=== PATIENT | female | born 1945 | race Caucasian/White ===

== ENCOUNTER → 2018-01-19 15:59 | Outpatient (POV) | payer BC, MEDICARE, SELFPAY | DX: Z00.00 Encounter for general adult medical examination without abnormal findings (principal) ==

== ENCOUNTER → 2018-01-26 09:38 | Outpatient (CLI) | payer BC, MEDICARE, SELFPAY ==
--- NOTE | 2018-01-26 09:49 | MM_ITS ---
MM Dig screening mamm BI w/CAD ORDERING PHYSICIAN : Michelet Reddy MD PATIENT AGE: 72 years GENDER: Female COMPARISON: May 2015, additional mammogram. July 2008 and May 2007 film screen mammogram INDICATION: ITS.REASON: SCREENING routine screening. No hormones. No new complaints... Family History.. Paternal cousins with breast cancer TECHNIQUE: Standard CC and MLO images were obtained. R2 CAD reviewed. FINDINGS: Residual fibroglandular elements most evident towards upper-outer quadrant. Overall Lower density breast bilaterally with no suspicious mass. No dominant mass. No suspicious calcifications.. . No significant new findings RIGHT BREAST:Stable. Follow-up in one year. LEFT BREAST: No new findings. At left breast multiple Mole markers again noted IMPRESSION: ------ Stable bilateral mammogram with no areas of significant concern. . BI-RADS Category: 1 Negative RECOMMENDED FOLLOW-UP: 1YR 1 YEAR FOLLOW-UP (A letter has been sent to the patient regarding results of the study.)
== END ==
PROVIDERS: PCP Family Medicine; Visit Provider Family Medicine
DX: Z12.31 Encounter for screening mammogram for malignant neoplasm of breast (principal)
CPT/HCPCS: 77067

== ENCOUNTER 2020-01-01 12:38 | Inpatient (IN) | payer MEDICARE, OTHER, SELFPAY ==
[2020-01-01] VITALS (12 sets, daily range): BP systolic 91–120; BP diastolic 48–80; PULSE 98–122; RESP 18–26; TEMP 37.2–39.6; O2SAT 92–93; BMI 27.2
--- NOTE | 2020-01-01 13:00 | PC.NURSE ---
PATIENT PRESENTS TO THE UNIT FROM DOCTOR CARMEN OFFICE. REPORTS RECENT SUDDEN CONFUSION AND PAIN WHILE URINATING. PATIENT DOES APPEAR TO BE CONFUSED AT THIS TIME AND WEAK. MASK IN PLACE PER PROTOCOL. POC EXPLAINED AND PATIENT V/U.
--- NOTE | 2020-01-01 13:40 | PC.NURSE ---
2 ATTEMPTS WERE MADE TO DRAW LABS (CBC, CMP, BLOOD CULTURES) AND START AN IV. CALLED LAB AND REQUESTED THEM TO DRAW LABS.
--- NOTE | 2020-01-01 14:00 | PC.NURSE ---
LAB SUCCESSFULLY CHELLE CBC, CMP, BLOOD CULTURES X2. lAB STATED THEY HAD TO STICK PATIENT 3 TIMES JUST TO GET LABS.
--- NOTE | 2020-01-01 14:00 | PC.NURSE ---
Lab personnel at bedside.
--- NOTE | 2020-01-01 15:07 | HMH.PHAVTE ---
[facility] Pharmacy VTE Monitoring - Patient Demographics Admission date: 01/01/20 Report Date: 01/01/20 Time: 15:07 Allergies/Adverse Reactions: Patient Allergies No Known Allergies Allergy (Unverified 02/09/17 15:02) Height: 1.57 m Weight: 67.585 kg - VTE Risk Was VTE Risk Assessment Performed: Yes VTE Score: 3 VTE Risk Level: Low Risk - Prophylaxis VTE Prophylaxis Ordered?: Yes Types of VTE Prophylaxis: TEDS Knee High Location of Applied Device: Bilateral Lower Extremeties
[2020-01-01 15:17] LABS: Basophils # 0.1 K/mm3 (0-0.2); Basophils % 0.3 % (0.1-2.0); Hematocrit 50.4 % (37.0-47.0); Hemoglobin 16.7 g/dL (12.2-16.2); Lymphocytes % 8.5 % (10-50); Mean Corpuscular HGB Conc 33.2 g/dL (31.8-35.4); Mean Corpuscular Hemoglobin 28.2 pg (27.0-31.2); Mean Corpuscular Volume 85.1 fl (81-99); Mean Platelet Volume 9.6 fl (7.4-10.4); Monocytes # 1.5 K/mm3 (0.1-1.0); Monocytes % 6.3 % (1.7-9.3); Neutrophils # 19.9 K/mm3 (1.8-7.8); Neutrophils % 84.9 % (37.0-80.0); Platelet Count 155 K/mm3 (142-424); Red Blood Count 5.92 M/mm3 (4.20-5.40); Red Cell Distribution Width 13.2 % (11.5-17.5); White Blood Count 23.4 K/mm3 (4.8-10.8)
[2020-01-01 15:18] LABS: Chloride 96 mmol/L (98-107); MANUAL DIFFERENTIAL MANUAL DIFFERENTIAL (MANUAL DIFF); Potassium 3.8 mmoL/L (3.5-5.1); Sodium 130 mmol/L (136-145)
[2020-01-01 15:21] LABS: Anion Gap 14.8 mEq/L (5-15); Blood Urea Nitrogen 30 mg/dl (7-17); Calcium 9.1 mg/dl (8.4-10.2); Carbon Dioxide 23 mmol/L (22.0-30.0); Creatinine Clearance Estimated 47 mL/min (50-200); Estimated Glomerular Filt Rate 48 ml/min (>60); GFR (African American) 59 ML/MIN (>60); Glucose 177 mg/dl (74-100)
[2020-01-01 15:25] LABS: Lactic Acid 2.5 mmol/L (0.7-2.1)
[2020-01-01 15:59] LABS: Coronavirus 19 IgG Antibody Negative (Negative); Coronavirus 19 IgM Antibody Negative (Negative)
--- NOTE | 2020-01-01 16:55 | HMH.HP ---
*Admission Date: 01/01/20 *Chief complaint: Fever *History of present illness: 74-year-old female with diabetes and hypertension presented to the office today with 2 days of dysuria and urinary frequency followed by fevers that began early this morning. Fevers were as high as 102. Patient was evaluated in the office and found to be confused with altered mentation. Exam was significant for a fever to 102.7 as well as right costovertebral angle tenderness. No other source of infection was identified and a white count in office was 20,000. Patient was unable to provide urine sample but due to exam consistent with right pyelonephritis patient was admitted to the hospital for further treatment. Currently she has IV fluids running. Urine is dark cloudy yellow and patient did require Cheema catheterization due to inability to urinate. White blood cell count was 23,000 on repeat labs here with mild elevation of lactic acid. Patient denies symptoms of respiratory infection. She denies vomiting, nausea, diarrhea. [facility] History I have reviewed the patient's past medical history: Yes Medical History: Reports:: Diabetes Mellitus Type 2, Hypertension Denies:: Cancer, Diabetes Mellitus Type 1, Internal Pacemaker, MRSA *Have you ever received a pneumonia vaccine?: No *Have you received a flu vaccine this season?: No Other Surgeries: No: Pacemaker Amputation: No Fractures: No - *Social History Last grade of school completed: 11th or 12th Smoking Status: Never smoker Alcohol Intake: never *Occupational Status:: retired Housing: house Household Members: spouse *Travel in the last 8 weeks: None Family Hx:: Non-contributory Review of Systems - Constitutional Reports body ache(s), Reports lack of energy, Denies chills - *Cardiovascular Denies chest pain, Denies chest pain at rest, Denies chest pain with activity - *Respiratory Denies change in phlegm color, Denies chest congestion, Denies cough, Denies shortness of breath - *Gastrointestinal Denies abdominal pain, Denies belching, Denies bloating, Denies heartburn, Denies vomiting - *Genitourinary Reports difficulty urinating, Reports painful urination, Reports difficulty starting urination, Denies dribbling after urination - *Musculoskeletal Denies abnormal walking, Denies joint pain - *Neurologic Reports confusion, Denies abnormal walking, Denies abnormal hearing, Denies abnormal movements, Denies abnormal speech - Psychiatric Denies abnormal sleep pattern Meds Home Medications Medication Instructions Recorded Confirmed Type Atorvastatin Calcium [Lipitor 10mg 10 mg PO HS 01/01/20 01/01/20 History Tab] Metformin HCl [Metformin 1000mg 1,000 mg PO DAILY 01/01/20 01/01/20 History Tablets] lisinopriL [Lisinopril 20mg Tab] 20 mg PO DAILY 01/01/20 01/01/20 History Allergies Allergy/AdvReac Type Severity Reaction Status Date / Time No Known Allergies Allergy Unverified 02/09/17 15:02 Exam Vital signs and Labs for Last 24 Hours: Temp Pulse Resp BP Pulse Ox 99.9 F H 108 H 18 91/48 L 93 L 01/01/20 16:15 01/01/20 16:15 01/01/20 16:15 01/01/20 16:15 01/01/20 16:15 Laboratory Results - last 24 hr 01/01/20 13:43: Lactate 2.5 H 01/01/20 14:00: WBC 23.4 H*, RBC 5.92 H, Hgb 16.7 H, Hct 50.4 H, MCV 85.1, MCH 28.2, MCHC 33.2, RDW 13.2, Plt Count 155, MPV 9.6, Neut % (Auto) 84.9 H, Lymph % (Auto) 8.5 L, Mayes % (Auto) 6.3, Eos % (Auto) 0.0 L, Baso % (Auto) 0.3, Neut # (Auto) 19.9 H, Lymph # (Auto) 2.0, Mayes # (Auto) 1.5 H, Eos # (Auto) 0.0, Baso # (Auto) 0.1 01/01/20 14:00: Sodium 130 L, Potassium 3.8, Chloride 96 L, Carbon Dioxide 23, Anion Gap 14.8, BUN 30 H, Creatinine 1.10 H, Estimated Creat Clear 47, Estimated GFR 48 L, Est GFR ( Amer) 59, Glucose 177 H, Calcium 9.1 01/01/20 14:10: SARS-CoV-2 IgG Ab (Rapid) Negative, SARS-CoV-2 IgM Ab (Rapid) Negative I & O for Last 24 hours: Intake & Output 12/30/19 12/31/19 01/01/20 11/10/20 11:59 1
[2020-01-01 17:21] LABS: Lymphocytes % 12 % (10-50); Monocytes % 7 % (2-9); Neutrophils % 81 % (42-76); Platelet Estimate Normal; RBC Morphology Normal; Total Cells Counted 100
[2020-01-01 18:08] LABS: Microscopic,Cath URINE MICROSCOPIC (MICROSCOPIC)
[2020-01-01 18:14] LABS: Appearance,Urine/Cath CLOUDY (Clear); Bilirubin,Cath Negative (Negative); Blood, Urine/Cath 3+ (Negative); Color,Urine/Cath YELLOW (Yellow); Glucose,Urine/Cath (UA) Negative (Negative); Ketones,Urine/Cath TRACE (Negative); Leukocyte Esterase,Cath 3+ (Negative); Nitrate,Cath POSITIVE (Negative); Protein,Urine/Cath 2+ (Negative); Specific Gravity, Urine/Cath 1.025 (1.005-1.030); Urobilinogen,Cath 0.2 EU/dl (0.2)
--- NOTE | 2020-01-01 18:15 | PC.NURSE ---
2026 BOLUS FINISHED AT THIS TIME.
--- NOTE | 2020-01-01 18:37 | PC.NURSE ---
PATIENT HAS BEEN CONFUSED THIS SHIFT. ALERT TO NAME, PLACE, BUT NOT AT TIMES. PATIENT DOES HAVE A SHIN IN PLACE NOW. WEAKNESS NOTED WITH AMBULATION. FEVER WAS ABLE TO BE BROUGHT DOWN WITH ANTIPYRETICS. BOLUSES WERE INFUSED PER ORDER. NO CURRENT NEEDS.
[2020-01-01 19:14] LABS: Reflex Lactic Add Lactic Reflex
[2020-01-01 20:03] LABS: POC Glucose,Bedside 168 (70-110)
[2020-01-01 20:05] LABS: Lactic Acid Follow Up (RFLX 1) 1.3 mmol/L (0.7-2.1)
--- NOTE | 2020-01-01 20:50 | PC.NURSE ---
Dr. Lofton called to report Pt continues to have elevated temps, respiratory rate has increased and o2 being 89-92%, Pt denies SOA. Orders given: Ibuprofen 400mg PRN for fever, 2L NC can be placed on Pt if o2 saturations remain 90 or below. Orders repeated and verified
[2020-01-01 21:54] LABS: Bacteria,Urine/Cath 1+ /lpf; Mucus,Urine/Cath 1+ /lpf
[2020-01-02] VITALS (10 sets, daily range): BP systolic 116–160; BP diastolic 58–105; PULSE 94–122; RESP 24–30; TEMP 36.7–39.4; O2SAT 88–96
--- NOTE | 2020-01-02 00:17 | PC.NURSE ---
Spoke with Dr. Lofton about Pt's temp continuing to be elevated with increased HR and low o2 saturations. o2 89-92's on pulse ox. Orders given to give ibuprofen 400mg Q4H PRN for fever and if o2 remains below 90% given 2L NC
--- NOTE | 2020-01-02 02:27 | PC.NURSE ---
contacted r/t pt continuing to have an elevated temperature w/new onset of increased respirations, o2 saturations 89-92%, Pt denies any SOA. Orders given: Ibuprofen 400mg Q4H PRN for fever, O2 2L NC if o2 remains 90 or below
--- NOTE | 2020-01-02 03:57 | PC.NURSE ---
Pt has slept at intervals during this shift, oriented to person, place, time, and sometimes , BLT lung sounds with expiratory audible wheezing noted, Bowel sounds present in all 4 quadrants, Cheema catheter draining yellow urine with sediments. During assessment pt felt clammy and was shaking with complaints of feeling cold. Temp checked and was 98.2 orally, Random glucose performed reading 149. Manual B/P performed and is normal, Pt shows an increased respiratory rate and looks to have a slight increase in WOB, o2 saturations remain at 89-90%, 2L NC applied to pt and a warm blanket provided. Pt denies feeling SOA, nausea, vomiting, headache, or any pain. Will continue to observe
[2020-01-02 03:59] LABS: POC Glucose,Bedside 149 (70-110)
--- NOTE | 2020-01-02 05:45 | PC.NURSE ---
RN AT BEDSIDE AT THIS TIME OBTAINING VS. PT NOTED TO BE SOB, MOUTH BREATHING, COOL TO TOUCH, SHIVERING, AND CLAMMY. PT STATES THAT SHE FEELS LIKE SHE HAS TO HAVE A BM AT THIS TIME AND STATES THAT SHE IS COLD. PT DENIES ANY PAIN. PT ASSISTED TO BR AND BACK AT THIS TIME. PT IS WEAK AND GATE IS UNSTEADY ASSIST X1 TO BR AND BACK. PT REFUSED TO USE A BSC STATING THAT SHE NEEDED TO WALK. STOOL SAMPLE COLLECTED IN CASE ORDERS ONE. GOWN AND LINENS CHANGED AT THIS TIME DUE FROM PT SWEATING. PT IS ON 2L NC AND HIGHEST O2 IS 95%. FS 116 AT THIS TIME. INDWELLING CATHETER EMPTIED AND 800 ML OUT AT THIS TIME. WILL CONTINUE TO OBSERVE.
[2020-01-02 06:14] LABS: POC Glucose,Bedside 116 (70-110)
--- NOTE | 2020-01-02 06:41 | PC.NURSE ---
PT SITTING UP IN BED AT THIS TIME DRINKING COFFEE PER REQUEST. PT STATES THAT SHE IS NOT COLD AND IS NOT SHIVERING. PT STILL SEEMS TO BE SOB. WILL CONTINUE TO OBSERVE.
--- NOTE | 2020-01-02 07:08 | PC.NURSE ---
REPORT GIVEN TO Natalie MISHRA RN AND Lisa DICK RN.
--- NOTE | 2020-01-02 07:30 | XR_ITS ---
PROCEDURE: XR CHEST 2V CLINICAL HISTORY: hypoxia COMPARISON: No exams were available for comparison FINDINGS: This is a slightly poor inspiratory effort. The lung crockett are clear of active infiltrate though there is minimal ill-defined opacities at the left base and minimal blunting of left costophrenic angle. . Cardiac size is normal and vascularity is normal. There are small calcified hilar nodes bilaterally. IMPRESSION: Possible minimal infiltrate left lower lobe with tiny reactive pleural effusion Dictated by: Dr. Kevin Veliz MD 01/02/2020 09:57 Dr. Kevin Veliz MD in [facility] 01/02/2020 09:57
--- NOTE | 2020-01-02 07:32 | HMH.ACPN2 ---
Internal Medicine - PN: Subj *Date: 01/02/20 *Time: 07:32 Interval history: Patient has no complaints this morning. Nursing staff reported patient developed some mild hypoxia with O2 sats reaching 88% on room air. Nasal cannula was applied but patient does not have that on this morning. Nursing staff also noted some increased work of breathing and abnormal breath sounds. Patient would like her Cheema catheter removed. Catheter continues to drain cloudy yellow urine Exam Vital signs and Labs for Last 24 Hours: Temp Pulse Resp BP Pulse Ox 98.4 F 110 H 24 160/58 H 95 01/02/20 05:40 01/02/20 05:40 01/02/20 05:40 01/02/20 05:45 01/02/20 05:40 Laboratory Results - last 24 hr 01/01/20 13:43: Lactate 2.5 H 01/01/20 14:00: WBC 23.4 H*, RBC 5.92 H, Hgb 16.7 H, Hct 50.4 H, MCV 85.1, MCH 28.2, MCHC 33.2, RDW 13.2, Plt Count 155, MPV 9.6, Neut % (Auto) 84.9 H, Lymph % (Auto) 8.5 L, Garland % (Auto) 6.3, Eos % (Auto) 0.0 L, Baso % (Auto) 0.3, Neut # (Auto) 19.9 H, Lymph # (Auto) 2.0, Garland # (Auto) 1.5 H, Eos # (Auto) 0.0, Baso # (Auto) 0.1, Total Counted 100, Neutrophils % (Manual) 81 H, Lymphocytes % (Manual) 12, Monocytes % (Manual) 7, Platelet Estimate Normal, RBC Morphology Normal 01/01/20 14:00: Sodium 130 L, Potassium 3.8, Chloride 96 L, Carbon Dioxide 23, Anion Gap 14.8, BUN 30 H, Creatinine 1.10 H, Estimated Creat Clear 47, Estimated GFR 48 L, Est GFR ( Amer) 59, Glucose 177 H, Calcium 9.1 01/01/20 14:10: SARS-CoV-2 IgG Ab (Rapid) Negative, SARS-CoV-2 IgM Ab (Rapid) Negative 01/01/20 16:10: Urine Color Yellow, Urine Appearance Cloudy, Urine pH 6.0, Ur Specific Pony 1.025, Urine Protein 2+, Urine Glucose (UA) Negative, Urine Ketones Trace, Urine Blood 3+, Urine Nitrate Positive, Urine Bilirubin Negative, Urine Urobilinogen 0.2, Ur Leukocyte Esterase 3+ A, Urine RBC 3-5, Urine WBC 5-10, Urine Bacteria 1+ 01/01/20 19:38: Lactate 1.3 01/01/20 19:53: POC Glucose 168 H 01/02/20 03:46: POC Glucose 149 H 01/02/20 05:49: POC Glucose 116 H I & O for Last 24 hours: Intake & Output 12/30/19 12/31/19 01/01/20 01/02/20 11:59 11:59 11:59 11:59 Intake Total 4137 / 4137 Output Total 1451 / 1451 Balance 2686 / 2686 Weight 149 lb Narrative: Patient has mild increased work of breathing. Heart has a regular rate and rhythm. Lungs have diminished breath sounds at the right base suspicious for pleural effusion. Patient has mild right CVA tenderness. Abdomen is soft. Assessment and Plan (1) Pyelonephritis of right kidney Status: Acute Category: Medical Code(s): N12 - Tubulo-interstitial nephritis, not specified as acute or chronic (2) Sepsis Status: Suspected Qualifiers: Sepsis acute organ dysfunction status: without acute organ dysfunction Category: Medical Code(s): A41.9 - Sepsis, unspecified organism (3) Type 2 diabetes mellitus with hyperglycemia Status: Chronic Qualifiers: Diabetes mellitus nursing home insulin use: without nursing home use Qualified Code(s): E11.65 - Type 2 diabetes mellitus with hyperglycemia Category: Medical Code(s): E11.65 - Type 2 diabetes mellitus with hyperglycemia (4) Essential hypertension Status: Chronic Category: Medical Code(s): I10 - Essential (primary) hypertension (5) Hypoxia Status: Acute Category: Medical Code(s): R09.02 - Hypoxemia - Assessment and plan all Dx Assessment and Plan for all problems:: 1. Continue IV Rocephin while awaiting urine and blood cultures 2. PA and lateral chest x-ray for hypoxia and suspected right pleural effusion 3. Remove Cheema catheter.
--- NOTE | 2020-01-02 07:45 | PC.NURSE ---
PATIENT IS A/OX4 THIS AM. PATIENT IS COMPLAINING OF LOW BACK PAIN NOW. STATES IT IS MANAGEABLE. DENIES SOA. PUT OXYGEN BACK INTO PATIENTS NOSE R/T DECREASED OXYGEN SATS AND INCREASED WORK OF BREATHING. RESPIRATIONS ARE ELEVATED AT 30. NO CYANOSIS NOTED. LUNGS REMAIN CLEAR, BUT DIMINISHED IN RIGHT BASES. INTERMITTENT DRY COUGH. PATIENT IS SALINE LOCKED NOW. SHIN WILL BE REMOVED PER REQUEST AND MD ORDER. NO CURRENT NEEDS. CALL LIGHT WITHIN REACH.
--- NOTE | 2020-01-02 08:28 | HMH.ITSHM ---
Current Home Medications as stated by this patient Lori Yeung or customer counter representative. []VERAPAMIL SIMVASTATIN NAPROXEN LOSARTAN DIGOXIN ASA
--- NOTE | 2020-01-02 09:04 | HMH.PHAINT ---
MED REC-COMPARED PATIENT'S RX BOTTLES WITH PATIENT LIST.
--- NOTE | 2020-01-02 09:30 | PC.NURSE ---
off floor to radiology
[2020-01-02 09:44] LABS: Basophils % 0.1 % (0.1-2.0); Eosinophils % 0.1 % (0.1-12.0); Hematocrit 34.6 % (37.0-47.0); Lymphocytes # 1.2 K/mm3 (0.7-4.5); Lymphocytes % 7.7 % (10-50); Mean Corpuscular HGB Conc 31.7 g/dL (31.8-35.4); Mean Corpuscular Hemoglobin 28.1 pg (27.0-31.2); Mean Corpuscular Volume 88.8 fl (81-99); Mean Platelet Volume 8.4 fl (7.4-10.4); Monocytes # 1.1 K/mm3 (0.1-1.0); Monocytes % 6.9 % (1.7-9.3); Neutrophils # 13.3 K/mm3 (1.8-7.8); Neutrophils % 85.2 % (37.0-80.0); Platelet Count 216 K/mm3 (142-424); Red Blood Count 3.89 M/mm3 (4.20-5.40); Red Cell Distribution Width 13.4 % (11.5-17.5); White Blood Count 15.6 K/mm3 (4.8-10.8)
[2020-01-02 09:45] LABS: Hemoglobin 10.9 g/dL (12.2-16.2)
[2020-01-02 09:47] LABS: MANUAL DIFFERENTIAL MANUAL DIFFERENTIAL (MANUAL DIFF)
[2020-01-02 11:03] LABS: Lymphocytes % 8 % (10-50); Monocytes % 4 % (2-9); Neutrophils % 84 % (42-76); Total Cells Counted 100
[2020-01-02 11:04] LABS: Platelet Estimate Normal; RBC Morphology Normal
[2020-01-02 11:21] LABS: POC Glucose,Bedside 146 (70-110)
--- NOTE | 2020-01-02 13:04 | PC.NURSE ---
PATIENT FOUND TO BE WITHOUT OXYGEN IN. ROOM AIR SAT WAS 97%. WILL LEAVE AND LEAVE PULSE OX ON. PATIENT DENIES SOA.
--- NOTE | 2020-01-02 16:45 | PC.NURSE ---
NO CHANGES NOTED FROM PREVIOUS ASSESSMENT. PATIENT HAS BEEN A/OX4. LUNGS CTA AND BOWELS ACTIVE X4. OXYGEN USE ON AND OFF TODAY. CURRENTLY OFF NOW. NO PAIN REPORTED. PATIENT REPORTS PAIN HAS EASED UP WITH URINATION. PATIENT'S RESP. RATE HAS DECREASED THROUGHOUT THE DAY. NO SOA REPORTED. PATIENT HAS BEEN UP SEVERAL TIMES. IV SALINE LOCKED. BROUGHT IN INCENTIVE NADIA AND EDUCATION . PATIENT GOT UP TO 1500. ENCOURAGED USE FREQUENTLY
[2020-01-02 16:49] LABS: POC Glucose,Bedside 184 (70-110)
--- NOTE | 2020-01-02 20:00 | PC.NURSE ---
PT HAD JUST RETURNED FROM BATHROOM AND VOIDED 300ML DARK CLOUDY URINE WITH A LITTLE SEDIMENT NOTED.PT SITTING ON SIDE OF BED.V/S WAS TAKEN AND PT HAS A TEMP OF 101.9.B/P-141/85,P-122,R-24,SAT LEVEL 96% ON RA.PT HAVING SOME LABORED BREATHING,DENIES ANY SHORTNESS OF AIR.LUNGS CLEAR.ROOM TEMP 80 DEGREES,PT AND REPORTS ROOM FEELING COMFORTABLE. REPORTS PT WAS CHILLING EARLIER AND WAS GIVEN SEVERAL BLANKETS.COULD HAVE STARTED RUNNING A TEMP THEN,IV FLUSHED AND PAINFUL,LEAKING WILL TAKE IT OUT AND RESTART AFTER PT SHOWERS,SHE IS WANTING TO TAKE A SHOWER.TOLD HER I WANTED HER TO TAKE SOME TYLENOL FIRST TO SEE IF THAT WOULD HELP HER TEMP,PT V/U
--- NOTE | 2020-01-02 20:11 | PC.NURSE ---
TYLENOL 650MG PO GIVEN
[2020-01-02 21:11] LABS: POC Glucose,Bedside 203 (70-110)
--- NOTE | 2020-01-02 21:19 | PC.NURSE ---
PT TEMP WAS TAKEN AT IT WAS 103.0 ORALLY,MOTRIN 400MG PO GIVEN AND THERMOSTAT DECREASED IN ROOM.IV REMOVED AND WRAPED WITH COBAN.PT GOING TO GO SHOWER.
[2020-01-03] VITALS (8 sets, daily range): BP systolic 91–144; BP diastolic 38–73; PULSE 80–113; RESP 20–24; TEMP 36.4–38.8; O2SAT 93–99
--- NOTE | 2020-01-03 00:32 | PC.NURSE ---
UPON ENTERING ROOM PT WAS SLEEPING.EASILY AROUSED.V/S OBTAINED 119/55,P-83,R-20,SAT.LEVEL 95%RA.LUNGS CLEAR TO ASCULTATE THROUGHTOUT.RESP.EVEN AND UNLABORED,PT DENIES ANY PAIN AT THIS TIME,WILL CONTINUE TO MONITOR
[2020-01-03 05:00] LABS: POC Glucose,Bedside 125 (70-110)
--- NOTE | 2020-01-03 05:00 | PC.NURSE ---
PT HAS SLEPT WELL TONIGHT,LUNGS CLEAR TO ASCULTATE THROUGHTOUT,RESP.EVEN AND UNLABORED.PT ALERT AND ORIENTED X3,B/P 103/61,P-80,R-20,T-97.6,SAT LEVEL 99% ON RA.FSBS 125.PT REPORTS BEING COLD A WARM BLANKET PROVIDED.HER BLANKET MOSTLY IN ONE AREA FELT WET.PT REPORTS THAT IS HOW IT HAS BEEN WAKING UP WITH SHEETS AND PILLOW WET.ANOTHER SHEET AND BLANKET PROVIDED.PT HAD WENT ANOTHER 100ML CLEAR YELLOW URINE THIS MORNING,
--- NOTE | 2020-01-03 06:48 | P.PN_ITS ---
Internal Medicine - PN: Subj *Date: 01/03/20 *Time: 06:48 Interval history: Patient has no complaints this morning. She reports sleeping relatively well. Her appetite still remains poor. She denies pain this morning. She did have fever greater than 101 yesterday evening. Exam Vital signs and Labs for Last 24 Hours: Temp Pulse Resp BP Pulse Ox 97.6 F 80 20 103/61 L 99 01/03/20 04:30 01/03/20 04:30 01/03/20 04:30 01/03/20 04:30 01/03/20 04:30 Laboratory Results - last 24 hr 01/02/20 09:20: WBC 15.6 H D, RBC 3.89 L D, Hgb 10.9 L D, Hct 34.6 L, MCV 88.8, MCH 28.1, MCHC 31.7 L, RDW 13.4, Plt Count 216 D, MPV 8.4, Neut % (Auto) 85.2 H , Lymph % (Auto) 7.7 L, Meade % (Auto) 6.9, Eos % (Auto) 0.1, Baso % (Auto) 0.1, Neut # (Auto) 13.3 H, Lymph # (Auto) 1.2, Meade # (Auto) 1.1 H, Eos # (Auto) 0.0, Baso # (Auto) 0.0, Total Counted 100, Neutrophils % (Manual) 84 H, Band Neutrophils % 4.0, Lymphocytes % (Manual) 8 L, Monocytes % (Manual) 4, Platelet Estimate Normal, RBC Morphology Normal 01/02/20 11:13: POC Glucose 146 H 01/02/20 16:39: POC Glucose 184 H 01/02/20 21:00: POC Glucose 203 H 01/03/20 04:44: POC Glucose 125 H I & O for Last 24 hours: Intake & Output 12/31/19 01/01/20 01/02/20 01/03/20 11:59 11:59 11:59 11:59 Intake Total 4137 / 4137 Output Total 1702 / 1902 1401 / 1401 Balance 2435 / 2235 -1401 / -1401 Weight 149 lb Microbiology Reports for the Last 24 Hours: Microbiology 01/01/20 16:10 Urine,Catheterized Urine Culture - Preliminary NO GROWTH AFTER 24 HOURS Narrative: Patient is in no distress. Lungs remain clear although diminished at the bases. Heart has a regular rate and rhythm. Abdomen is soft, nontender, nondistended. Back is without CVA tenderness this morning. Patient's mentation has improved. Speech is more fluent. Thought processes are organized and responses are quicker Assessment and Plan (1) Pyelonephritis of right kidney Status: Acute Category: Medical Code(s): N12 - Tubulo-interstitial nephritis, not specified as acute or chronic (2) Sepsis Status: Suspected Qualifiers: Sepsis acute organ dysfunction status: without acute organ dysfunction Category: Medical Code(s): A41.9 - Sepsis, unspecified organism (3) Type 2 diabetes mellitus with hyperglycemia Status: Chronic Qualifiers: Diabetes mellitus terminal gauger supervisor insulin use: without terminal gauger supervisor use Qualified Code(s): E11.65 - Type 2 diabetes mellitus with hyperglycemia Category: Medical Code(s): E11.65 - Type 2 diabetes mellitus with hyperglycemia (4) Essential hypertension Status: Chronic Category: Medical Code(s): I10 - Essential (primary) hypertension (5) Hypoxia Status: Acute Category: Medical Code(s): R09.02 - Hypoxemia - Assessment and plan all Dx Assessment and Plan for all problems:: 1. Continue IV Rocephin. Await urine and blood cultures. Doubt discharged today due to persistence of fevers. 2. Await morning CBC and BMP 3. Restart patient's metformin
--- NOTE | 2020-01-03 06:50 | PC.NURSE ---
MAKING AM ROUNDS
[2020-01-03 07:14] LABS: Basophils % 0.2 % (0.1-2.0); Eosinophils # 0.1 K/mm3 (0.0-0.4); Eosinophils % 0.9 % (0.1-12.0); Hematocrit 37.8 % (37.0-47.0); Hemoglobin 11.9 g/dL (12.2-16.2); Lymphocytes # 1.3 K/mm3 (0.7-4.5); Lymphocytes % 8.7 % (10-50); Mean Corpuscular HGB Conc 31.5 g/dL (31.8-35.4); Mean Corpuscular Hemoglobin 27.7 pg (27.0-31.2); Mean Corpuscular Volume 87.7 fl (81-99); Mean Platelet Volume 8.4 fl (7.4-10.4); Monocytes # 0.8 K/mm3 (0.1-1.0); Monocytes % 5.5 % (1.7-9.3); Neutrophils # 12.9 K/mm3 (1.8-7.8); Neutrophils % 84.7 % (37.0-80.0); Platelet Count 241 K/mm3 (142-424); White Blood Count 15.3 K/mm3 (4.8-10.8)
[2020-01-03 07:16] LABS: MANUAL DIFFERENTIAL MANUAL DIFFERENTIAL (MANUAL DIFF)
[2020-01-03 07:18] LABS: Chloride 104 mmol/L (98-107)
[2020-01-03 07:19] LABS: Potassium 3.4 mmoL/L (3.5-5.1); Sodium 137 mmol/L (136-145)
[2020-01-03 07:21] LABS: Blood Urea Nitrogen 18 mg/dl (7-17); Creatinine Clearance Estimated 52 mL/min (50-200); Estimated Glomerular Filt Rate 70 ml/min (>60); GFR (African American) 85 ML/MIN (>60)
[2020-01-03 07:22] LABS: Anion Gap 13.4 mEq/L (5-15); Calcium 9.2 mg/dl (8.4-10.2); Carbon Dioxide 23 mmol/L (22.0-30.0); Glucose 156 mg/dl (74-100)
--- NOTE | 2020-01-03 08:10 | PC.NURSE ---
Routine assessment completed. Lungs CTA, Heart at RRR. BS present x4, lap sites with T/T remain C/D/I. Pt. denies pain, reports passing flatus. Pt. denies further needs at this time.
[2020-01-03 10:10] LABS: Eosinophils % 1 % (0-3); Lymphocytes % 20 % (10-50); Monocytes % 11 % (2-9); Neutrophils % 68 % (42-76); Platelet Estimate Normal; RBC Morphology Normal; Total Cells Counted 100
[2020-01-03 11:29] LABS: POC Glucose,Bedside 132 (70-110)
--- NOTE | 2020-01-03 12:20 | PC.NURSE ---
Pt. reports having Headache, O2 sats noted to be at 84-86% on RA, Pt. has audible wheezes, O2 applied at 2 L. Respirations noted to be at 24. Pt. temp noted to be at 99.4. Pt. requests Ibuprofen for headache. Given see EMAR. Pt. denies further needs, will continue to monitor.
--- NOTE | 2020-01-03 13:15 | CT_ITS ---
PROCEDURE: CT ANGIO CHEST CLINCIAL INDICATION: HYPOXIA, NEGATIVE CXR COMPARISON: No exams were available for comparison TECHNIQUE: IV Contrast: 70ML Isovue 370 Axial images obtained with sagittal and coronal reformats. All CT scans at the facility use one or more dose reduction, viz: automated exposure control, ma/kV adjustment per patient size (including targeted exams where dose is matched to indication, i.e. head), or iterative reconstruction technique. FINDINGS: HEART AND MEDIASTINAL STRUCTURES: Coronary artery calcifications are present and there is calcification of the root of the aorta. No evidence of aortic aneurysm or dissection. No central pulmonary embolus is evident. The peripheral pulmonary arteries are not well opacified. No mediastinal or hilar mass or adenopathy. LUNGS AND PLEURAL SPACES: There are atelectatic changes in the right lower lobe. There are trace bilateral pleural effusions. BONY STRUCTURES: There are degenerative changes of the thoracic spine UPPER ABDOMEN: Fatty liver. ADDITIONAL FINDINGS: No other significant abnormalities. IMPRESSION: 1. No evidence of central pulmonary embolus. The peripheral pulmonary arteries are not well opacified and cannot be totally cleared from the possibility of pulmonary emboli. No large pulmonary emboli are evident. 2. Trace bilateral pleural effusions with right basilar atelectasis. Dictated by: Darian Sarah MD 01/03/2020 17:42 Darian Sarah MD in [facility] 01/03/2020 17:42
--- NOTE | 2020-01-03 13:25 | PC.NURSE ---
Nurse performing hourly rounding on pt. Pt. room noted to be hot. Pt. reports turning thermostat up, Pt. feels hot to the touch, temp noted to be at 101.9. Tylenol given. O2 noted to be at 89 on RA and 95% with 2L. Thermostat turned down. Pt. denies needs, will continue to monitor.
--- NOTE | 2020-01-03 14:38 | PC.NURSE ---
20 g IV inserted in RAC, Pt. to have Angiogram done.
--- NOTE | 2020-01-03 15:30 | PC.NURSE ---
Nurse in room. Temp down to 98.4 HR at 94, O2 at 95 % on RA.
--- NOTE | 2020-01-03 15:50 | PC.NURSE ---
Routine Reassessment completed. A&O X4, Lungs CTA, Heart at RRR. BS present x4 quad. Pt. denies pain. Pt. on RA now sats at 95%, Temp down to 98.2. HR down to 94 Respirations at 20. Pt. denies needs, will continue to monitor.
--- NOTE | 2020-01-03 15:55 | PC.NURSE ---
Pt. to Radiology Via wheelchair, for Angiogram.
--- NOTE | 2020-01-03 16:00 | PC.NURSE ---
Dr. Lofton up to see pt. Pt. out of room. Dr. Lofton wishes for pt. to remain on O2 when she gets back to room, and he wishes to be notified when Angiogram reading is put in.
[2020-01-03 16:41] LABS: POC Glucose,Bedside 177 (70-110)
--- NOTE | 2020-01-03 20:00 | PC.NURSE ---
PT ASSESSED AT THIS TIME. BILATERAL LUNG SOUND CLEAR. NO EDEMA NOTED. PT RF TEDS. PT DENIES ANY PAIN. PT VSS SPO2 97% ON 2L NC. RESPIRATIONS EVEN AND UNLABORED. PT LYING IN BED WATCHING TV DENIES ANY FURTHER NEEDS AT THIS TIME. WILL CONTINUE TO OBSERVE.
[2020-01-03 21:02] LABS: POC Glucose,Bedside 142 (70-110)
[2020-01-04] VITALS: BP 131/62; PULSE 99; RESP 18; TEMP 36.7; O2SAT 95
[2020-01-04 04:00] VITALS: BP 137/77; PULSE 105; RESP 20; TEMP 37.2; O2SAT 96
--- NOTE | 2020-01-04 04:29 | PC.NURSE ---
PT REASSESSED AT THIS TIME. BILATERAL LUNG SOUNDS CLEAR. NO EDEMA NOTED. PT STATES SHE IS NAUSEOUS MEDICATED PER EMAR. DENIES ANY PAIN AT THIS TIME. PT MEDICATED WITH TYLENOL R.T TEMP OF 99.0 AT THIS TIME. PT IS ON RA AT THIS TIME. PT KEEPS TAKING O2 OFF. SPO2 IS 96% ON RA. WILL CONTINUE TO OBSERVE.
[2020-01-04 05:52] LABS: POC Glucose,Bedside 132 (70-110)
[2020-01-04 07:00] VITALS: BMI 27.3
--- NOTE | 2020-01-04 07:45 | PC.NURSE ---
Dr. Lofton and care team in room.
--- NOTE | 2020-01-04 07:51 | HMH.ACPN2 ---
Internal Medicine - PN: Subj *Date: 01/04/20 *Time: 07:51 Interval history: Patient has no new complaints this morning. Yesterday the patient was noted to be hypoxic after ambulating with O2 sat decreasing to 83%. Patient had already had a negative chest x-ray so CT scan of the chest was performed. Patient had no evidence of central pulmonary artery embolism although peripherally embolism cannot definitively be ruled out. Patient denies shortness of breath both at rest and with ambulation. She is noted to be mildly tachypneic during hospitalization but usually this is been associated with fevers. Her reports they walk regularly at home at least a mile per day and she has not shown any signs of shortness of breath when ambulating. Exam Vital signs and Labs for Last 24 Hours: Temp Pulse Resp BP Pulse Ox 99.0 F 105 H 20 137/77 96 01/04/20 04:00 01/04/20 04:00 01/04/20 04:00 01/04/20 04:00 01/04/20 04:00 Laboratory Results - last 24 hr 01/03/20 07:00: Total Counted 100, Neutrophils % (Manual) 68, Lymphocytes % (Manual) 20, Monocytes % (Manual) 11 H, Eosinophils % (Manual) 1, Platelet Estimate Normal, RBC Morphology Normal 01/03/20 11:21: POC Glucose 132 H 01/03/20 16:27: POC Glucose 177 H 01/03/20 20:48: POC Glucose 142 H 01/04/20 05:45: POC Glucose 132 H I & O for Last 24 hours: Intake & Output 01/01/20 01/02/20 01/03/20 01/04/20 11:59 11:59 11:59 11:59 Intake Total 4137 / 4137 Output Total 1702 / 1902 1901 / 1901 Balance 2435 / 2235 -1901 / -1901 Weight 149 lb Microbiology Reports for the Last 24 Hours: Microbiology 01/01/20 16:10 Urine,Catheterized Urine Culture - Preliminary Gram Negative Rods 01/01/20 14:00 Blood Blood Culture - Preliminary NO GROWTH AFTER 48 HOURS 01/01/20 14:10 Blood Blood Culture - Preliminary NO GROWTH AFTER 48 HOURS Narrative: Patient looks comfortable. Lungs are clear. Heart has a regular rate and rhythm. Abdomen is soft and nontender. Back is without CVA tenderness. Assessment and Plan (1) Pyelonephritis of right kidney Status: Acute Category: Medical Code(s): N12 - Tubulo-interstitial nephritis, not specified as acute or chronic (2) Sepsis Status: Suspected Qualifiers: Sepsis acute organ dysfunction status: without acute organ dysfunction Category: Medical Code(s): A41.9 - Sepsis, unspecified organism (3) Type 2 diabetes mellitus with hyperglycemia Status: Chronic Qualifiers: Diabetes mellitus stunt double insulin use: without nursing home use Qualified Code(s): E11.65 - Type 2 diabetes mellitus with hyperglycemia Category: Medical Code(s): E11.65 - Type 2 diabetes mellitus with hyperglycemia (4) Essential hypertension Status: Chronic Category: Medical Code(s): I10 - Essential (primary) hypertension (5) Hypoxia Status: Acute Category: Medical Code(s): R09.02 - Hypoxemia - Assessment and plan all Dx Assessment and Plan for all problems:: I spoke with lab and urine plates are growing 2 organisms at this time. Definitive identification will not be for at least another 24 hours. Patient will receive her IV Rocephin this afternoon. If she remains afebrile the rest of the day and labs indicate improving infection patient will be discharged home later today with outpatient follow-up.
[2020-01-04 08:17] VITALS: BP 100/62; PULSE 90; RESP 18; TEMP 36.7; O2SAT 95
--- NOTE | 2020-01-04 08:24 | PC.NURSE ---
Routine assessment completed. Pt. A&O X4, Lungs CTA, Heart at RRR, BS present x4 quad. Pt. denies pain, Pt. found to not be wearing O2, O2 sats at 95% on RA. Pt. denies needs, will continue to monitor.
[2020-01-04 08:29] LABS: Basophils % 0.3 % (0.1-2.0); Eosinophils # 0.1 K/mm3 (0.0-0.4); Eosinophils % 0.4 % (0.1-12.0); Hematocrit 35.8 % (37.0-47.0); Hemoglobin 11.1 g/dL (12.2-16.2); Lymphocytes # 1.9 K/mm3 (0.7-4.5); Lymphocytes % 16.5 % (10-50); Mean Corpuscular HGB Conc 30.9 g/dL (31.8-35.4); Mean Corpuscular Hemoglobin 27.1 pg (27.0-31.2); Mean Corpuscular Volume 87.8 fl (81-99); Mean Platelet Volume 8.7 fl (7.4-10.4); Monocytes # 0.7 K/mm3 (0.1-1.0); Monocytes % 5.7 % (1.7-9.3); Neutrophils % 77.1 % (37.0-80.0); Platelet Count 276 K/mm3 (142-424); Red Blood Count 4.07 M/mm3 (4.20-5.40); Red Cell Distribution Width 13.3 % (11.5-17.5); White Blood Count 11.7 K/mm3 (4.8-10.8)
[2020-01-04 08:44] LABS: NT Pro Brain Natriuretic Pep. 1870 pg/mL (0-450)
[2020-01-04 09:13] LABS: Procalcitonin 2.08 ng/mL (0.0-2.0)
--- NOTE | 2020-01-04 10:22 | HMH.ACPN ---
Internal Medicine - PN: Subj *Date: 01/04/20 *Time: 10:22 Exam Vital signs and Labs for Last 24 Hours: Temp Pulse Resp BP Pulse Ox 98.1 F 90 18 100/62 L 95 01/04/20 08:17 01/04/20 08:17 01/04/20 08:17 01/04/20 08:17 01/04/20 08:17 Laboratory Results - last 24 hr 01/03/20 11:21: POC Glucose 132 H 01/03/20 16:27: POC Glucose 177 H 01/03/20 20:48: POC Glucose 142 H 01/04/20 05:45: POC Glucose 132 H 01/04/20 07:58: WBC 11.7 H, RBC 4.07 L, Hgb 11.1 L, Hct 35.8 L, MCV 87.8, MCH 27.1, MCHC 30.9 L, RDW 13.3, Plt Count 276, MPV 8.7, Neut % (Auto) 77.1, Lymph % (Auto) 16.5, [place] % (Auto) 5.7, Eos % (Auto) 0.4, Baso % (Auto) 0.3, Neut # (Auto) 9.0 H, Lymph # (Auto) 1.9, [place] # (Auto) 0.7, Eos # (Auto) 0.1, Baso # (Auto) 0.0 01/04/20 07:58: Procalcitonin 2.08 H 01/04/20 07:58: NT-Pro-B Natriuret Pep 1870 H I & O for Last 24 hours: Intake & Output 01/01/20 01/02/20 01/03/20 01/04/20 23:59 23:59 23:59 23:59 Intake Total 2277 / 2277 1860 / 1860 Output Total 650 / 650 2353 / 2353 600 / 600 Balance 1627 / 1627 -493 / -493 -600 / -600 Weight 67.585 kg Microbiology Reports for the Last 24 Hours: Microbiology 01/01/20 16:10 Urine,Catheterized Urine Culture - Preliminary Gram Negative Rods 01/01/20 14:00 Blood Blood Culture - Preliminary NO GROWTH AFTER 48 HOURS 01/01/20 14:10 Blood Blood Culture - Preliminary NO GROWTH AFTER 48 HOURS Assessment and Plan (1) Pyelonephritis of right kidney Status: Acute Category: Medical Code(s): N12 - Tubulo-interstitial nephritis, not specified as acute or chronic (2) Sepsis Status: Suspected Qualifiers: Sepsis acute organ dysfunction status: without acute organ dysfunction Category: Medical Code(s): A41.9 - Sepsis, unspecified organism (3) Type 2 diabetes mellitus with hyperglycemia Status: Chronic Qualifiers: Diabetes mellitus equipment operator intermodal yard insulin use: without equipment operator intermodal yard use Qualified Code(s): E11.65 - Type 2 diabetes mellitus with hyperglycemia Category: Medical Code(s): E11.65 - Type 2 diabetes mellitus with hyperglycemia (4) Essential hypertension Status: Chronic Category: Medical Code(s): I10 - Essential (primary) hypertension (5) Hypoxia Status: Acute Category: Medical Code(s): R09.02 - Hypoxemia The patient's infection will respond to the chosen ABx?: Yes Is the patient receiving the right drug, dose, and route?: Yes Could a more targeted ABx be ordered?: No
[2020-01-04 11:24] VITALS: BP 143/83; PULSE 101; RESP 18; TEMP 36.7; O2SAT 98
[2020-01-04 11:27] LABS: POC Glucose,Bedside 146 (70-110)
--- NOTE | 2020-01-04 13:02 | PC.NURSE ---
Pt. up to walk while on RA. O2 sats at 98% prior to walking, O2 sats remain at 98% while walking on RA. After walking 2 laps around unit on RA O2 sats remain at 98%.
--- NOTE | 2020-01-04 13:10 | PC.NURSE ---
Dr. Lofton called unit to speak with this nurse regarding pt. discharge. reports he is uncomfortable sending pt. home with current BNP and Procalcitonin levels, and wishes to keep patient another night and redraw blood work for the am. wishes for nurse to relay this message to the patient. Nurse v/u.
[2020-01-04 16:00] VITALS: BP 113/66; PULSE 95; RESP 18; TEMP 37.4; O2SAT 96
--- NOTE | 2020-01-04 16:19 | PC.NURSE ---
Reassessment completed at this time. Pt. rates pain at 3/10 in back, Tylenol given see EMAR. Temp at 99.4. No further changes from previous assessment. Pt. remains A&O X4, Lungs CTA, Heart at RRR, BS present x4 quad. Pulses equal bilaterally in both radial and pedal areas. Pt. denies needs further needs, will continue to monitor.
[2020-01-04 20:00] VITALS: BP 131/70; PULSE 98; RESP 19; TEMP 36.7; O2SAT 97
--- NOTE | 2020-01-04 20:40 | PC.NURSE ---
ASSESSMENT COMPLETE. BILATERAL LUNG SOUND CLEAR. NO EDEMA NOTED. BOWEL SOUNDS NOTED TO BE HYPERACTIVE X4 QUADS. PT STATES THAT SHE HAS HAD A NEW ONSET OF BELCHING AFTER EATING AND DIARRHEA AFTER EATING. HAT PLACED IN TOILET AND PT INSTRUCTED TO USE THE HAT WHEN NEXT BM. DENIES ANY PAIN AT THIS TIME. WILL CONTINUE TO OBSERVE.
--- NOTE | 2020-01-04 23:53 | PC.NURSE ---
PT MEDICATED PER EMAR AT THIS TIME R/T TEMP OF 99.2 WILL RECHECK.
[2020-01-05] VITALS: BP 140/72; PULSE 96; RESP 18; TEMP 37.3; O2SAT 95
[2020-01-05 01:00] VITALS: TEMP 36.8
[2020-01-05 04:00] VITALS: BP 130/61; PULSE 80; RESP 18; TEMP 36.6; O2SAT 98
--- NOTE | 2020-01-05 04:03 | PC.NURSE ---
PT REASSESSED AT THIS TIME. NO CHANGES NOTED.
[2020-01-05 05:00] VITALS: BMI 28.6
[2020-01-05 07:14] LABS: Basophils # 0.1 K/mm3 (0-0.2); Basophils % 0.8 % (0.1-2.0); Eosinophils # 0.2 K/mm3 (0.0-0.4); Eosinophils % 1.8 % (0.1-12.0); Hematocrit 38.6 % (37.0-47.0); Lymphocytes # 2.6 K/mm3 (0.7-4.5); Lymphocytes % 21.3 % (10-50); Mean Corpuscular HGB Conc 32.3 g/dL (31.8-35.4); Mean Corpuscular Volume 86.7 fl (81-99); Mean Platelet Volume 9.2 fl (7.4-10.4); Monocytes # 0.8 K/mm3 (0.1-1.0); Monocytes % 6.3 % (1.7-9.3); Neutrophils # 8.5 K/mm3 (1.8-7.8); Neutrophils % 69.9 % (37.0-80.0); Platelet Count 334 K/mm3 (142-424); Red Blood Count 4.46 M/mm3 (4.20-5.40); Red Cell Distribution Width 13.6 % (11.5-17.5); White Blood Count 12.2 K/mm3 (4.8-10.8)
--- NOTE | 2020-01-05 07:21 | HMH.DCSUM ---
General - General Admission date:: 01/01/20 Discharge date: 01/05/20 HPI HPI: 74-year-old female with diabetes and hypertension presented to the office today with 2 days of dysuria and urinary frequency followed by fevers that began early this morning. Fevers were as high as 102. Patient was evaluated in the office and found to be confused with altered mentation. Exam was significant for a fever to 102.7 as well as right costovertebral angle tenderness. No other source of infection was identified and a white count in office was 20,000. Patient was unable to provide urine sample but due to exam consistent with right pyelonephritis patient was admitted to the hospital for further treatment. Currently she has IV fluids running. Urine is dark cloudy yellow and patient did require Cheema catheterization due to inability to urinate. White blood cell count was 23,000 on repeat labs here with mild elevation of lactic acid. Patient denies symptoms of respiratory infection. She denies vomiting, nausea, diarrhea. Hospital Course Hospital Course: Admitted and placed on IV Rocephin. Patient met sepsis criteria and was given IV fluid bolus and both Tylenol and ibuprofen as an antipyretic. Cheema catheter was placed on initial day of admission due to patient's inability to urinate and urgent need for urine sample prior to initiation of antibiotics. Cheema catheter was discontinued after 24 hours. Patient was able to urinate voluntarily at that point. She continued to have fevers throughout the first 48 hours of admission as high as 103. She remained on Rocephin. White blood cell count trended down. Blood cultures were negative after 48 hours for bacterial growth. Urine culture is still pending at the time of discharge and was growing a mucoid gram-negative bacteria. Patient's right flank pain that was present on admission had resolved within 48 hours. Patient was able to ambulate without difficulty. Her appetite improved. Patient defervesced. Vital signs returned to normal. Patient was discharged home on January 04. She will follow-up in the office in 10 days. Patient will complete an outpatient course of antibiotics. Patient was found to be slightly hypoxic and tachypneic on the initial day of admission. O2 sats decreased to the high 80s. Patient continued to have occasional drops in O2 sats in the 80s with spot checks. Both chest x-ray and CT scan of the chest was performed without any significant finding. Patient did have small pleural effusions. At discharge patient had gone 48 hours without supplemental oxygen. Patient denies shortness of breath during entire hospitalization. Patient is a diabetic and blood sugars were followed before meals and at bedtime with sliding scale insulin coverage. Overall glucose was well controlled during hospitalization. Patient has a history of hypertension and her lisinopril was held during hospitalization Objective Vital signs: Temp Pulse Resp BP Pulse Ox 98 F 80 18 130/61 98 01/05/20 04:00 01/05/20 04:00 01/05/20 04:00 01/05/20 04:00 01/05/20 04:00 no acute distress - *Routine Respiratory Exam Present: CTA bilaterally - *Routine Cardiovascular Exam Present: RRR - *Routine Extremities Exam Absent: cyanosis, clubbing, edema - Routine Back/Spine/Pelvis Exam Back/Spine: Absent: CVA tenderness Results Labs on day of discharge: Labs from last 24 hours 01/05/20 01/04/20 01/04/20 06:48 11:19 07:58 WBC 12.2 H RBC 4.46 Hgb Hct 38.6 MCV 86.7 MCH 28.0 MCHC 32.3 RDW 13.6 Plt Count 334 MPV 9.2 Neut % (Auto) 69.9 Lymph % (Auto) 21.3 [place] % (Auto) 6.3 Eos % (Auto) 1.8 Baso % (Auto) 0.8 Neut # (Auto) 8.5 H Lymph # (Auto) 2.6 [place] # (Auto) 0.8 Eos # (Auto) 0.2 Baso # (Auto) 0.1 POC Glucose 146 H NT-Pro-B Natriuret Pep 1870 H Procalcitonin 01/04/20 01/04/20 07:58 07:58 W
--- NOTE | 2020-01-05 07:46 | PC.NURSE ---
MEREDITH CALLED FROM CARE MANAGEMENT. STATES AFTER PATIENT RECEIVES ANTIBIOTIC DR MORALES WILL PUT D/C ORDER IN.
[2020-01-05 07:53] LABS: Hemoglobin 12.5 g/dL (12.2-16.2)
[2020-01-05 07:55] VITALS: RESP 20; O2SAT 97
--- NOTE | 2020-01-05 07:55 | PC.NURSE ---
PATIENT SITTING ON THE SIDE OF THE BED THIS AM. NO DISTRESS NOTED. REPORTS BACK PAIN, BUT PT STATES THIS IS DUE TO HER PREVIOUS BACK SURGERY. PATIENT ANXIOUS TO GO HOME THIS AM. POC EXPLAINED AND PT V/U. NO NEEDS.
[2020-01-05 08:00] VITALS: BP 151/64; PULSE 96; RESP 20; TEMP 36.7; O2SAT 97
[2020-01-05 08:20] LABS: Procalcitonin 1.23 ng/mL (0.0-2.0)
--- NOTE | 2020-01-05 10:48 | PC.NURSE ---
discharge education provided at this time. encouraged questions and pt v/u
== END 2020-01-05 11:00 | disposition home or self-care (01) | DRG 690 ==
PROVIDERS: Admitting Provider Family Medicine; PCP Family Medicine; Visit Provider Family Medicine
DX: N12 Tubulo-interstitial nephritis, not specified as acute or chronic (principal); B96.1 Klebsiella pneumoniae [K. pneumoniae] as the cause of diseases classified elsewhere; I10 Essential (primary) hypertension; E11.65 Type 2 diabetes mellitus with hyperglycemia; Z79.84 Long term (current) use of oral hypoglycemic drugs; R09.02 Hypoxemia
CPT/HCPCS: 36415; 71046; 71275; 80048; 81001; 82962; 83605; 83880; 84145; 85007; 85025; 86328; 87040; 87086; 87088; 87186; J2405; Q9967

== ENCOUNTER → 2020-06-12 13:38 | Outpatient (POV) | payer MEDICARE, OTHER, SELFPAY | DX: Z00.00 Encounter for general adult medical examination without abnormal findings (principal) ==

== ENCOUNTER 2021-11-17 14:02 | Emergency (ER) | payer MEDICARE, OTHER, SELFPAY ==
[2021-11-17 14:04] VITALS: BP 155/77; PULSE 84; RESP 20; TEMP 36.9; O2SAT 97; BMI 26.9
--- NOTE | 2021-11-17 14:09 | HMH.EDGENADL ---
Discharge Plan Disposition Patient Disposition: Home, Self-Care Condition: Good Chief Complaint: PAIN Prescriptions Prescriptions: No Action metformin 1,000 MG tablet 1,000 mg PO BID atorvastatin 10 MG tablet 10 mg PO HS lisinopril 20 MG tablet 20 mg PO DAILY Referrals Follow up/Referrals: Michelet Reddy MD [Primary Care Provider] - See instructions Clinical Impressions Clinical Impression: Anterior chest wall pain Instructions Patient Instructions: DI for Atypical Chest Pain, DI for Chest Pain Discharge ED Provider: Bernabe Braxton General Adult HPI General Chief complaint: PAIN Stated complaint: per doctor needs new EKG Time Seen by Provider: 11/17/21 14:09 History of Present Illness HPI narrative: 76-year-old female with history of essential hypertension, type 2 diabetes, presents at the request of her primary physician who she saw today. She had EKG and was told to come to the emergency department. She denies having any chest pain in the office or here however states that she had been having intermittent left-sided chest discomfort particularly at nighttime whenever she would lay on her left side which seemed to improve upon switching over to the right side. She denies associated shortness of breath, nausea, vomiting, diaphoresis, lightheadedness or dizziness, palpitations or other symptoms at this time. She does not recall if she has had a stress test and there is not one listed in the records at this hospital. Related Data Home Medications Medication Instructions Recorded Confirmed atorvastatin 10 mg tablet 10 mg PO HS High cholesterol 01/01/20 01/01/20 lisinopril 20 mg tablet 20 mg PO DAILY High blood pressure 01/01/20 01/01/20 metformin 1,000 mg tablet 1,000 mg PO BID Diabetes 01/01/20 01/02/20 Allergies Allergy/AdvReac Type Severity Reaction Status Date / Time No Known Allergies Allergy Unverified 06/25/20 14:01 [facility] Social History Smoking Status: Never smoker alcohol intake: never current occupational status: retired Travel in the last 8 weeks: None household members: spouse housing: house current occupational exposures/hazards: No caffeine: No ROS Obtained: Yes All systems reviewed & no additional complaints except as documented Physical Exam General General appearance: alert and in no apparent distress Head Head exam: atraumatic, normocephalic and normal inspection Eye Eye exam: Present normal appearance, PERRL and EOMI ENT ENT exam: Present normal exam, normal oropharynx, mucous membranes moist, TM's normal bilaterally and normal external ear exam Neck Neck exam: Present normal inspection, full ROM and trachea midline; Absent meningismus or lymphadenopathy Chest Chest inspection: Present normal inspection and symmetric chest wall rise; Absent tenderness Respiratory Respiratory exam: Present normal lung sounds bilaterally; Absent respiratory distress Cardiovascular Cardiovascular exam: Present regular rate and normal rhythm; Absent JVD Abdominal Exam Abdominal exam: Present soft and normal bowel sounds; Absent distention, tenderness or guarding Extremities Exam Extremities exam: Present normal inspection, full ROM and normal capillary refill; Absent calf tenderness Back Exam Back exam: Present normal inspection; Absent tenderness Neurological Exam Neurological exam: Present alert and oriented X3 Psychiatric Psychiatric exam: Present normal affect and normal mood Skin Skin exam: Present warm, dry, intact and normal color Lymphatic Lymphatic Findings: no adenopathy Medical Decision Making Medical Records Medical records reviewed: Yes I reviewed the patient's medical records. Tera Inquiry Pt receiving controlled substance: No Vital Signs: 11/17/21 14:04 11/17/21 14:30 Temperature 98.5 F Temperature Source Oral Pulse Rate 87 Pulse Rate [Right Radial] 84 Respiratory R
--- NOTE | 2021-11-17 14:11 | ECG_ITS ---
APPROVED REPORT Exam: Resting ECG HR:86 bpm ECG Measurements Heart Rate 86 AXES FL 177 P 44 QRSd 90 QRS -2 QT 332 T 32 QTc 375 Conclusion SINUS RHYTHM LOW QRS VOLTAGE IN PRECORDIAL LEADS [QRS DEFLECTION < 1.0 mV IN CHEST LEADS] BORDERLINE ECG UNCONFIRMED REPORT Electronically signed by : Jose Luis Gomez MD 11/20/2021 16:01:16
--- NOTE | 2021-11-17 14:12 | XR_ITS ---
FINAL REPORT CLINICAL HISTORY: SOB/CP COMPARISON: January 02, 2020 FINDINGS: SINGLE VIEW CHEST The heart is normal in size. The mediastinum is unremarkable. There is mild atelectasis in the left lung base. The lungs are otherwise clear. There is no pneumothorax. IMPRESSION: No acute process. Reviewed, Interpreted and Dictated by Dwayne Lewis MD Transcribed by Liz Whitney Authenticated and [facility]
[2021-11-17 14:16] VITALS: BMI 26.9
[2021-11-17 14:30] VITALS: BP 116/70; PULSE 87; RESP 18; O2SAT 98
[2021-11-17 14:43] LABS: Basophils # 0.2 K/mm3 (0-0.2); Basophils % 1.5 % (0.1-2.0); Eosinophils # 0.2 K/mm3 (0.0-0.4); Hematocrit 42.9 % (37.0-47.0); Hemoglobin 13.8 g/dL (12.2-16.2); Lymphocytes # 3.4 K/mm3 (0.7-4.5); Mean Corpuscular HGB Conc 32.2 g/dL (31.8-35.4); Mean Corpuscular Hemoglobin 28.1 pg (27.0-31.2); Mean Corpuscular Volume 87.1 fl (81-99); Monocytes # 0.5 K/mm3 (0.1-1.0); Neutrophils # 6.6 K/mm3 (1.8-7.8); Neutrophils % 60.5 % (37.0-80.0); Platelet Count 393 K/mm3 (142-424); Red Blood Count 4.92 M/mm3 (4.20-5.40); Red Cell Distribution Width 13.7 % (11.5-17.5); White Blood Count 10.9 K/mm3 (4.8-10.8)
[2021-11-17 14:49] LABS: Chloride 104 mmol/L (98-107)
[2021-11-17 14:50] LABS: Potassium 4.2 mmoL/L (3.5-5.1); Sodium 141 mmol/L (136-145)
[2021-11-17 14:52] LABS: Alanine Aminotransferase 18 U/L (12-78); Aspartate Amino Transferase 30 U/L (14-36); Blood Urea Nitrogen 16 mg/dl (7-17); Creatinine Clearance Estimated 50 mL/min (50-200); Estimated Glomerular Filt Rate 81 ml/min (>60); GFR (African American) 98 ML/MIN (>60)
[2021-11-17 14:53] LABS: Albumin Level 4.7 g/dl (3.5-5.0); Albumin/Globulin Ratio 1.6 (1.1-1.8); Alkaline Phosphatase 86 U/L (38-126); Anion Gap 15.2 mEq/L (5-15); Bilirubin,Total 0.2 mg/dl (0.2-1.3); Calcium 9.4 mg/dl (8.4-10.2); Carbon Dioxide 26 mmol/L (22.0-30.0); Globulin 2.9 g/dL (1.3-3.2); Glucose 95 mg/dl (74-100); Total Protein,Serum 7.6 g/dl (6.3-8.2)
[2021-11-17 15:00] VITALS: BP 118/71; PULSE 88; RESP 18; O2SAT 98
[2021-11-17 15:07] LABS: Troponin I < 0.01 ng/ml (0.00-0.034)
[2021-11-17 15:46] VITALS: BP 110/65; PULSE 91; RESP 18; O2SAT 98
[2021-11-17 15:50] VITALS: BP 110/65; PULSE 92; RESP 18; TEMP 36.7; O2SAT 96
== END 2021-11-17 15:55 | disposition home or self-care (01) ==
PROVIDERS: Emergency Provider Emergency Medicine; PCP Family Medicine
DX: R07.9 Chest pain, unspecified (principal); Z79.84 Long term (current) use of oral hypoglycemic drugs; Z79.899 Other long term (current) drug therapy
CPT/HCPCS: 71045; 80053; 84484; 85025; 93005; 99285

== ENCOUNTER → 2021-12-22 09:49 | Outpatient (CLI) | payer MEDICARE, OTHER, SELFPAY ==
--- NOTE | 2021-12-22 09:57 | CT_ITS ---
FINAL REPORT CLINICAL HISTORY: POST COVID,CONFUSION FINDINGS: Axial images of the head were obtained without and with contrast. Coronal reformatted images were also obtained. This study was performed with techniques to keep radiation doses as low as reasonably achievable (ALARA). Individualized dose reduction techniques using automated exposure control or adjustment of mA and/or kV according to the patient's size were employed. There is no evidence of intracranial hemorrhage. There is a 4.7 x 4.6 x 4.1 cm peripherally enhancing left temporal region mass. There is erosion of the greater wing of the sphenoid in this region. The mass extends anteriorly and inferiorly through the skull. There is mass effect in significant edema on the left cerebral white matter. There is 7 mm of [id number] sub fall seen herniation. There is mass effect on the left brainstem consistent with uncal herniation. 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 Differentials would include glioblastoma multiform may, metastasis or aggressive meningeal neoplasm such is meningeal sarcoma. Reviewed, Interpreted and Dictated by Mickey Jaeger III, MD Transcribed by Jose Kamara Authenticated and [facility]
== END ==
PROVIDERS: PCP Family Medicine; Visit Provider Family Medicine
DX: R41.0 Disorientation, unspecified (principal); U09.9 Post COVID-19 condition, unspecified
CPT/HCPCS: 70470; Q9967

== ENCOUNTER 2022-01-29 17:06 | Observation (INO) | payer MEDICARE, OTHER, SELFPAY ==
--- NOTE | 2022-01-29 17:03 | ECG_ITS ---
APPROVED REPORT Exam: Resting ECG HR:117 bpm ECG Measurements Heart Rate 117 AXES PA 159 P 39 QRSd 86 QRS 14 QT 299 T 81 QTc 368 Conclusion SINUS TACHYCARDIA WITH OCCASIONAL ECTOPIC PREMATURE COMPLEXES NONSPECIFIC ST & T-WAVE ABNORMALITY ABNORMAL RHYTHM ECG UNCONFIRMED REPORT Electronically signed by : Jose Luis Gomez MD 01/29/2022 20:15:12
[2022-01-29 17:12] VITALS: BP 130/83; PULSE 115; RESP 20; TEMP 36.8; O2SAT 98; BMI 21.2
--- NOTE | 2022-01-29 17:15 | PC.NURSE ---
Contacting [facility] for medical records regarding recent admission
--- NOTE | 2022-01-29 17:19 | PC.NURSE ---
Daughter at [facility]
--- NOTE | 2022-01-29 17:19 | HMH.EDGENADL ---
Discharge Plan Disposition Patient Disposition: Xfer Short-Term Hosp Condition: Fair Prescriptions Prescriptions: No Action metformin 1,000 MG tablet 1,000 mg PO BID atorvastatin 10 MG tablet 10 mg PO HS lisinopril 20 MG tablet 20 mg PO DAILY Referrals Follow up/Referrals: Michelet Reddy MD [Primary Care Provider] - See instructions Clinical Impressions Clinical Impression: AMS (altered mental status) Discharge ED Provider: Roman Hammer General Adult HPI General Chief complaint: Weakness Stated complaint: WEAKNESS Time Seen by Provider: 01/29/22 17:30 History of Present Illness HPI narrative: History obtained from patient's daughter. The patient recently had a large brain tumor removed by Dr. Herzog at [facility] on 01/02/2022, from her description sounds like a glioblastoma. She says that her mother presented with a an expressive aphasia which has persisted. She has started in therapy and they are not preparing to start chemotherapy. She was getting around well around the house able to ambulate and follow commands and eating well, but since last night her behavior has changed. Daughter tried to get her up but her knees buckled under her. She has not eaten anything today and has drank only a little bit of water. She seems to be in and out of it , like when someone takes too much sedating medication. Daughter contacted the patient's neurosurgeon who advised the patient to be taken to an emergency department by 911. Daughter has not given the patient any of her medications today per orders of Dr. Herzog. Related Data Home Medications Medication Instructions Recorded Confirmed atorvastatin 10 mg tablet 10 mg PO HS High cholesterol 01/01/20 01/01/20 lisinopril 20 mg tablet 20 mg PO DAILY High blood pressure 01/01/20 01/01/20 metformin 1,000 mg tablet 1,000 mg PO BID Diabetes 01/01/20 01/02/20 Allergies Allergy/AdvReac Type Severity Reaction Status Date / Time No Known Allergies Allergy Unverified 06/25/20 14:01 [facility] Disclaimer: The information contained in this section may have been updated after the patient was seen, as this information can be updated by other users. Social History Smoking Status: Never smoker alcohol intake: never current occupational status: retired Travel in the last 8 weeks: None household members: spouse housing: house current occupational exposures/hazards: No caffeine: No ROS Obtained: Yes unobtainable due to mental status Physical Exam General General appearance: alert and in no apparent distress Head Head exam: other (Surgical incision left scalp healing well. No signs of infection.) Eye Eye exam: Present PERRL and EOMI ENT ENT exam: Present mucous membranes moist Neck Neck exam: Present full ROM; Absent meningismus Chest Chest inspection: Present normal inspection and symmetric chest wall rise Respiratory Respiratory exam: Present normal lung sounds bilaterally; Absent respiratory distress Cardiovascular Cardiovascular exam: Present regular rate, normal rhythm and normal heart sounds Abdominal Exam Abdominal exam: Present soft; Absent distention, tenderness, guarding or rigidity Extremities Exam Extremities exam: Present normal inspection Neurological Exam Neurological exam: Present alert Expanded Neurological Exam Comment: Does not follow commands well, the only commands I can get her to follow was to raise her left leg and to follow my finger with her eyes, did not follow any other commands. Does not speak. She moves all 4 extremities spontaneously, no gross focal deficit noted. Medical Decision Making Medical Records Medical records reviewed: Yes I reviewed the patient's medical records. MR Comment: Reviewed records faxed from [facility]. Pathology shows with glioblastoma. Tera Inquiry Pt receiving controlled substance: No Vit
--- NOTE | 2022-01-29 17:25 | PC.NURSE ---
GLENN CHOI at for patient eval
--- NOTE | 2022-01-29 17:38 | CT_ITS ---
PROCEDURE INFORMATION: Exam: CT Head Without Contrast Exam date and time: 01/29/2022 6:08 PM Age: 76 years old Clinical indication: Altered mental status/memory loss; Prior surgery; Surgery date: <1 month; Surgery type: Brain SX on 01/02; Additional info: AMS TECHNIQUE: Imaging protocol: Computed tomography of the head without contrast. Radiation optimization: All CT scans at this facility use at least one of these dose optimization techniques: automated exposure control; mA and/or kV adjustment per patient size (includes targeted exams where dose is matched to clinical indication); or iterative reconstruction. COMPARISON: CT HEAD/BRAIN WO/W CON 12/22/2021 10:25 AM FINDINGS: Brain: Scattered pneumocephalus noted. Extensive vasogenic/tumefactive edema is re-identified with medial ization of the left uncus and mass effect on the left cerebral peduncle. 8 mm [id number] midline shift or shift is noted previously 6 mm. Cerebral ventricles: Ventricles and CSF containing spaces are otherwise unremarkable. No hydrocephalus. Paranasal sinuses: Visualized sinuses are unremarkable. No fluid levels. Mastoid air cells: Visualized mastoid air cells are well aerated. Bones/joints: There are postoperative changes related to left lateral craniotomy. There is a large hypodense region in the left anterior temporal lobe measuring 3 x 3.2 cm presumably the surgical cavity. Deep to the craniotomy site there is a 3 mm thick dural thickening/extra-axial collection likely postoperative. Soft tissues: Unremarkable. IMPRESSION: 1. Postoperative changes related to left lateral craniotomy. The surgical cavity measures 3 x 3.2 cm. 3 mm thick extra-axial collection/dural thickening deep to the craniotomy site, likely postoperative. 2. Extensive vasogenic/tumefactive edema is re-identified with medial ization of the left uncus and mass effect on the left cerebral peduncle. 3. 8 mm [id number] midline shift or shift is noted previously 6 mm.
--- NOTE | 2022-01-29 17:38 | XR_ITS ---
PROCEDURE INFORMATION: Exam: XR Chest Exam date and time: 01/29/2022 6:22 PM Age: 76 years old Clinical indication: Other: AMS TECHNIQUE: Imaging protocol: Radiologic exam of the chest. Views: 1 view. COMPARISON: CR XR CHEST PORTABLE 11/17/2021 2:46 PM FINDINGS: Lungs: Lungs are hypoaerated. No evidence of pneumonia or interstitial edema. Pleural spaces: Unremarkable. No pleural effusion. No pneumothorax. Heart/Mediastinum: Unremarkable. No cardiomegaly. Bones/joints: Unremarkable. IMPRESSION: No evidence of pneumonia or interstitial edema.
[2022-01-29 17:48] LABS: POC Glucose,Bedside 216 (70-110)
--- NOTE | 2022-01-29 18:06 | PC.NURSE ---
pt to radiology via stretcher
--- NOTE | 2022-01-29 18:14 | PC.NURSE ---
pt returned from radiology via stretcher
--- NOTE | 2022-01-29 18:25 | PC.NURSE ---
Received records from [facility] and handed to GLENN CHOI
[2022-01-29 19:06] VITALS: BP 136/74; PULSE 114; O2SAT 96
[2022-01-29 19:06] LABS: Microscopic, Urine URINE MICROSCOPIC (MICROSCOPIC)
[2022-01-29 19:10] LABS: Appearance,Urine CLOUDY (Clear); Bilirubin,Urine Negative (Negative); Blood, Urine 2+ (Negative); Color,Urine YELLOW (Yellow); Glucose,Urine (UA) 2+ (Negative); Ketones,Urine TRACE (Negative); Leukocyte Esterase,Urine Negative (Negative); Nitrate,Urine Negative (Negative); Protein,Urine 1+ (Negative); Specific Gravity, Urine >= 1.030 (1.005-1.030); Urobilinogen,Urine 0.2 EU/dl (0.2)
[2022-01-29 19:18] LABS: Basophils # 0.1 K/mm3 (0-0.2); Basophils % 0.5 % (0.1-2.0); Eosinophils # 0.1 K/mm3 (0.0-0.4); Eosinophils % 0.6 % (0.1-12.0); Hematocrit 37.8 % (37.0-47.0); Lymphocytes # 2.3 K/mm3 (0.7-4.5); Lymphocytes % 23.9 % (10-50); Mean Corpuscular HGB Conc 31.7 g/dL (31.8-35.4); Mean Corpuscular Volume 88.2 fl (81-99); Mean Platelet Volume 8.2 fl (7.4-10.4); Monocytes # 0.4 K/mm3 (0.1-1.0); Monocytes % 4.6 % (1.7-9.3); Neutrophils # 6.7 K/mm3 (1.8-7.8); Neutrophils % 70.4 % (37.0-80.0); Platelet Count 313 K/mm3 (142-424); Red Blood Count 4.28 M/mm3 (4.20-5.40); Red Cell Distribution Width 14.6 % (11.5-17.5); White Blood Count 9.5 K/mm3 (4.8-10.8)
[2022-01-29 19:21] LABS: Chloride 101 mmol/L (98-107); Potassium 4.1 mmoL/L (3.5-5.1); Sodium 135 mmol/L (136-145)
[2022-01-29 19:24] LABS: Alanine Aminotransferase 46 U/L (12-78); Albumin Level 3.7 g/dl (3.5-5.0); Albumin/Globulin Ratio 1.2 (1.1-1.8); Alkaline Phosphatase 104 U/L (38-126); Anion Gap 12.1 mEq/L (5-15); Aspartate Amino Transferase 31 U/L (14-36); Bilirubin,Total 0.6 mg/dl (0.2-1.3); Blood Urea Nitrogen 13 mg/dl (7-17); Carbon Dioxide 26 mmol/L (22.0-30.0); Creatinine Clearance Estimated 40 mL/min (50-200); Estimated Glomerular Filt Rate 120 ml/min (>60); GFR (African American) 145 ML/MIN (>60); Total Protein,Serum 6.7 g/dl (6.3-8.2)
[2022-01-29 19:25] LABS: Calcium 9.3 mg/dl (8.4-10.2); Glucose 199 mg/dl (74-100)
[2022-01-29 19:38] LABS: Troponin I < 0.01 ng/ml (0.00-0.034)
[2022-01-29 19:42] LABS: Coronavirus 19, PCR Not Detected (NotDetected); Influenza A, PCR Not Detected (NotDetected); Influenza B, PCR Not Detected (NotDetected)
--- NOTE | 2022-01-29 20:00 | PC.NURSE ---
Spoke with [facility], they advised they have no immediate beds available. She said they would place pt on wait list, and send a call out to Dr. Joyce who is collection support specialist for Dr. Herzog. Waiting for call back at this time.
--- NOTE | 2022-01-29 20:04 | PC.NURSE ---
Dr. Hammer speaking with Dr. Joyce
--- NOTE | 2022-01-29 20:16 | PC.NURSE ---
Dr. Hammer at speaking with pt/family about POC
--- NOTE | 2022-01-29 20:27 | PC.NURSE ---
Dr. Hammer s/w [facility]
--- NOTE | 2022-01-29 20:33 | PC.NURSE ---
Dr. Hammer s/w hospitalist Dr. Carpenter at [place]
[2022-01-29 20:34] LABS: Bacteria,Urine 4+ /lpf; RBC,Urine Occasional #/hpf (0-3); WBC,Urine Occasional #/hpf (0-3)
[2022-01-29 20:53] VITALS: BMI 25.3
[2022-01-29 21:30] VITALS: BP 115/73; PULSE 111; O2SAT 93
--- NOTE | 2022-01-29 21:33 | EXP.HP ---
History of Present Illness *Admission Date: 01/29/22 *Reason for visit:: Altered mental status *History of present illness: This is a 76 yoF With past medical history of diabetes, hypertension, hyperlipidemia and recent resection of glioblastoma on January 02 presents emergency department for worsening altered mental status. Per daughter at bedside, patient underwent glioblastoma resection on 01/02/2022 at [facility] in [place]. She reports that she has been doing well since her surgery. At her baseline post resection, the patient has been able to complete many ADLs sometimes without difficulty. She does have aphasia but has been able to communicate with her daughter verbally. She has been ambulatory, able to take her self to the restroom and feed herself. Daughter states that she is also been able to follow commands. Yesterday afternoon patient developed worsening altered mental status. She is no longer following commands but is moving all extremities spontaneously. She will speak in some short sentences but of her own volition and not on command. Daughter at bedside does not endorse cough, foul-smelling urine, any sick contacts. The patient has been noted to grab at her craniotomy site which daughter believes is her stating that she has a headache. Emergency department work-up mostly unremarkable. Laboratory evaluation within normal limits. CT of the head with likely postoperative changes. There is noted fluid collection at the craniotomy site but is likely to represent postoperative changes. 3.8 mm shift that is reduced from her prior 6 mm shift. No acute changes noted. Emergency department physician did speak with Dr. Gallardo with neurosurgery and she is recommended for transfer, has been officially accepted by the hospitalist service at [facility] but given capacity barriers, patient will be admitted here until bed availability. On my exam, patient is resting with her eyes closed but will open eyes to voice. She is moving all 4 extremities volitionally but does not on command. She did speak in a full sentence stating your hands are cold without any noted dysphagia. On my exam patient was noted to be hot to touch. Temperature at that time 100.6. Noted erythema surrounding craniotomy surgical incisions. Will obtain blood cultures, procalcitonin, lactic acid and given recent instrumentation, will cover for CLOTH REELER bacteria with vancomycin and Rocephin. Hospitalist at [facility] has been updated on further findings and agrees with plan of care. [facility] Disclaimer: The information contained in this section may have been updated after the patient was seen, as this information can be updated by other users. Social History Smoking Status: Never smoker alcohol intake: never current occupational status: retired Travel in the last 8 weeks: None household members: spouse housing: house current occupational exposures/hazards: No caffeine: No Review of Systems Review of Systems Review of systems:: unable to obtain Review of systems (narrative): Secondary to altered mental status and aphasia Meds Home Medications and Allergies Home Medications Medication Instructions Recorded Confirmed Type atorvastatin 10 mg tablet 10 mg PO HS High cholesterol 01/01/20 01/01/20 History lisinopril 20 mg tablet 20 mg PO DAILY High blood pressure 01/01/20 01/01/20 History metformin 1,000 mg tablet 1,000 mg PO BID Diabetes 01/01/20 01/02/20 History New Prescriptions to Start Prescriptions: Allergies Allergy/AdvReac Type Severity Reaction Status Date / Time No Known Allergies Allergy Unverified 06/25/20 14:01 Exam Data for Last 24 hours Vital signs and Labs for Last 24 Hours: Temp Pulse Resp BP Pulse Ox 98.3 F 111 H 20 115/73 93 L 01/29/22 17:12 01/29/22 21:30 01/29/22 17:12 01/29/22 21:30 01/29/22 21:30 Laboratory Results - last 24 hr
[2022-01-29 21:46] LABS: Lactic Acid 1.1 mmol/L (0.7-2.1)
[2022-01-29 21:48] LABS: Troponin I < 0.01 ng/ml (0.00-0.034)
[2022-01-29 21:55] LABS: Procalcitonin 0.114 ng/mL (0.0-2.0)
[2022-01-29 22:24] VITALS: BP 125/78; PULSE 87; RESP 20; TEMP 36.9; O2SAT 98
--- NOTE | 2022-01-29 22:30 | PC.NURSE ---
Pt arrived to floor via stretcher @ [id number].
[2022-01-29 22:35] VITALS: BP 132/59; PULSE 114; RESP 16; TEMP 37.7; O2SAT 94
[2022-01-29 23:00] VITALS: PULSE 109; O2SAT 95
--- NOTE | 2022-01-29 23:18 | PC.NURSE ---
Spoke with Sabrina from [facility] about bed status, no bed available at this time.
[2022-01-29 23:24] LABS: POC Glucose,Bedside 262 (70-110)
[2022-01-30] VITALS: BP 134/65; PULSE 109; RESP 16; TEMP 37.1; O2SAT 95
[2022-01-30 00:45] LABS: Troponin I < 0.01 ng/ml (0.00-0.034)
--- NOTE | 2022-01-30 02:24 | PC.NURSE ---
noted pt more alert and up ambulating to bathroom with assist x1, pt with unsteady gait, pt still nonverbal and does not answer questions but will follow commands, pt voiding without difficulty at this time.
[2022-01-30 02:51] LABS: POC Glucose,Bedside 312 (70-110)
--- NOTE | 2022-01-30 04:11 | PC.NURSE ---
pt admitted this shift with ams, pt is s/p brain surgery from previous brain tumor, pt is suppose to undergo radiation therapy in the future, incision to left side of scalp noted proximated, slight redness noted around incision sites, pt is alert to self, unable to articulate words and answer questions but follows simple commands with some hesitation, daughter remains at bedside, pt has slept mostly and did ambulate once to restroom with assist, no acute distress noted, pt awaits bed at [facility].
--- NOTE | 2022-01-30 04:37 | PC.NURSE ---
Spoke with Sabrina with [facility] for update on status, no bed available at this time.
[2022-01-30 06:21] LABS: POC Glucose,Bedside 251 (70-110)
[2022-01-30 07:12] LABS: Basophils % 0.4 % (0.1-2.0); Eosinophils # 0.1 K/mm3 (0.0-0.4); Eosinophils % 0.9 % (0.1-12.0); Hematocrit 35.7 % (37.0-47.0); Hemoglobin 11.6 g/dL (12.2-16.2); Lymphocytes # 1.4 K/mm3 (0.7-4.5); Lymphocytes % 16.3 % (10-50); Mean Corpuscular HGB Conc 32.4 g/dL (31.8-35.4); Mean Corpuscular Hemoglobin 28.4 pg (27.0-31.2); Mean Corpuscular Volume 87.5 fl (81-99); Mean Platelet Volume 8.6 fl (7.4-10.4); Monocytes # 0.3 K/mm3 (0.1-1.0); Monocytes % 3.3 % (1.7-9.3); Neutrophils # 6.9 K/mm3 (1.8-7.8); Neutrophils % 79.1 % (37.0-80.0); Platelet Count 337 K/mm3 (142-424); Red Blood Count 4.08 M/mm3 (4.20-5.40); Red Cell Distribution Width 14.5 % (11.5-17.5); White Blood Count 8.8 K/mm3 (4.8-10.8)
[2022-01-30 07:21] LABS: Chloride 108 mmol/L (98-107); Sodium 137 mmol/L (136-145)
[2022-01-30 07:22] LABS: Potassium 4.4 mmoL/L (3.5-5.1)
[2022-01-30 07:24] LABS: Blood Urea Nitrogen 20 mg/dl (7-17)
[2022-01-30 07:25] LABS: Anion Gap 12.4 mEq/L (5-15); Carbon Dioxide 21 mmol/L (22.0-30.0); Creatinine Clearance Estimated 48 mL/min (50-200); Estimated Glomerular Filt Rate 155 ml/min (>60); GFR (African American) 187 ML/MIN (>60); Glucose 245 mg/dl (74-100)
--- NOTE | 2022-01-30 07:43 | HMH.PHAINT1 ---
Pharmacy Intervention Comments: MEDICATION RECONCILIATION COMPLETED ON PATIENT USING EXTERNAL FILL HISTORY FROM PHARMACY AND CARLOS REPORT. -SURINDER CHADWICK, ROBID
[2022-01-30 08:00] VITALS: BP 120/64; PULSE 101; RESP 20; TEMP 36.6; O2SAT 94
--- NOTE | 2022-01-30 08:07 | EXP.PHA.CONS ---
Pharmacy Consult Date: 01/30/22 Time: 08:09 Referring provider: RANDY Reason for Consult:: PHARMACY CONSULTED TO MANAGE VANCOMYCIN THERAPY Allergies Allergy/AdvReac Type Severity Reaction Status Date / Time No Known Allergies Allergy Unverified 06/25/20 14:01 Home Medications Medication Instructions Recorded Confirmed Type atorvastatin 10 mg tablet 10 mg PO HS High cholesterol 01/01/20 01/29/22 History lisinopril 20 mg tablet 20 mg PO DAILY Hypertension 01/01/20 01/29/22 History metformin 1,000 mg tablet 1,000 mg PO BIDWMEAL Diabetes 01/01/20 01/30/22 History acetaminophen 650 mg 650 mg PO AM Pain 01/29/22 01/29/22 History tablet,extended release (Tylenol 8 Hour) alprazolam 0.25 mg tablet (Xanax) 0.25 mg PO BID Anxiety 01/29/22 01/29/22 History diphenhydramine 25 1 tab PO HS sleep 01/29/22 01/29/22 History mg-acetaminophen 500 mg tablet (Tylenol PM Extra Strength) gabapentin 100 mg capsule 100 mg PO BID Pain 01/29/22 01/29/22 History (Neurontin) New Prescriptions to Start Prescriptions: Height: 1.6 m Weight: 64.92 kg Laboratory Results:: Laboratory Results - last 24 hr 01/29/22 17:11: SARS-CoV-2 (PCR) Not detected, Influenza A Untype (PCR) Not detected, Influenza Type B (PCR) Not detected 01/29/22 17:41: POC Glucose 216 H 01/29/22 19:02: Urine Color Yellow, Urine Appearance Cloudy, Urine pH 6.0, Ur Specific [place] >= 1.030, Urine Protein 1+, Urine Glucose (UA) 2+, Urine Ketones Trace, Urine Blood 2+, Urine Nitrate Negative, Urine Bilirubin Negative, Urine Urobilinogen 0.2, Ur Leukocyte Esterase Negative, Urine RBC Occasional, Urine WBC Occasional, Ur Squamous Epith Cells None, Urine Bacteria 4+ 01/29/22 19:06: WBC 9.5, RBC 4.28, Hgb 12.0 L, Hct 37.8, MCV 88.2, MCH 28.0, MCHC 31.7 L, RDW 14.6, Plt Count 313, MPV 8.2, Neut % (Auto) 70.4, Lymph % (Auto) 23.9, [place] % (Auto) 4.6, Eos % (Auto) 0.6, Baso % (Auto) 0.5, Neut # (Auto) 6.7, Lymph # (Auto) 2.3, [place] # (Auto) 0.4, Eos # (Auto) 0.1, Baso # (Auto) 0.1 01/29/22 19:06: Sodium 135 L, Potassium 4.1, Chloride 101, Carbon Dioxide 26, Anion Gap 12.1, BUN 13, Creatinine 0.50 L, Estimated Creat Clear 40, Estimated GFR 120, Est GFR ( Amer) 145, Glucose 199 H, Calcium 9.3, Total Bilirubin 0.6, AST 31, ALT 46, Alkaline Phosphatase 104, Troponin I < 0.01, Total Protein 6.7, Albumin 3.7, Globulin 3.0, Albumin/Globulin Ratio 1.2 01/29/22 19:06: Procalcitonin 0.114 01/29/22 21:03: Troponin I < 0.01 01/29/22 21:26: Lactate 1.1 01/29/22 23:00: POC Glucose 262 H 01/29/22 23:59: Troponin I < 0.01 01/30/22 01:59: POC Glucose 312 H* 01/30/22 05:42: POC Glucose 251 H 01/30/22 06:59: WBC 8.8, RBC 4.08 L, Hgb 11.6 L, Hct 35.7 L, MCV 87.5, MCH 28.4, MCHC 32.4, RDW 14.5, Plt Count 337, MPV 8.6, Neut % (Auto) 79.1, Lymph % (Auto) 16.3, [place] % (Auto) 3.3, Eos % (Auto) 0.9, Baso % (Auto) 0.4, Neut # (Auto) 6.9, Lymph # (Auto) 1.4, [place] # (Auto) 0.3, Eos # (Auto) 0.1, Baso # (Auto) 0.0 01/30/22 06:59: Sodium 137, Potassium 4.4, Chloride 108 H, Carbon Dioxide 21 L, Anion Gap 12.4, BUN 20 H D, Creatinine 0.40 L, Estimated Creat Clear 48, Estimated GFR 155, Est GFR ( Amer) 187 D, Glucose 245 H D, Calcium 9.0, Magnesium 2.0 Medical History: Medical History (Updated 01/30/22 @ 00:43 by Johanna Palomares RN) Brain tumor HLD (hyperlipidemia) HTN (hypertension) Kidney disease Spinal stenosis Assessment and Plan Assessment and plan all Dx Assessment and Plan for all problems:: PT RECV'D VANCOMYCIN 1000MG AND ROCEPHIN 2 GM IN ER. WILL CONTINUE ROCEPHIN 2 GM EVERY 12 HOURS AND INCREASE VANCOMYCIN TO 1250MG EVERY 24 HOURS. PHARMACY WILL FOLLOW DAILY
--- NOTE | 2022-01-30 10:08 | DIET.NUTRFU ---
during rounds provider requested diet be changed to regular and kitchen was notified for tray
--- NOTE | 2022-01-30 10:18 | PC.NURSE ---
[facility] called with update, no beds available at this time;
[2022-01-30 12:00] VITALS: BP 100/62; PULSE 92; RESP 18; TEMP 36.6; O2SAT 95
--- NOTE | 2022-01-30 14:55 | EXP.PN ---
Subjective *Date: 01/30/22 *Time: 14:55 Interval history: Date of service January 30, 2022 The patient is accompanied by her daughter who is at bedside. I am accompanied by several staff for multidisciplinary rounds including pharmacy, nursing and case management. The patient reports no pain. The daughter reports that her mother is improving and she understands the prognoses and diagnoses from her recent craniotomy. They plan to continue palliative care and have an appointment with oncology on Wednesday to discuss radiation therapy and chemotherapy. We have reviewed and discussed her laboratory results, chest and head imaging. The patient is tolerating her IV antibiotic therapy with no adverse events. Exam Data for Last 24 hours Vital signs and Labs for Last 24 Hours: Temp Pulse Resp BP Pulse Ox 97.8 F 92 H 18 100/62 L 95 01/30/22 12:00 01/30/22 12:00 01/30/22 12:00 01/30/22 12:00 01/30/22 12:00 Laboratory Results - last 24 hr 01/29/22 17:11: SARS-CoV-2 (PCR) Not detected, Influenza A Untype (PCR) Not detected, Influenza Type B (PCR) Not detected 01/29/22 17:41: POC Glucose 216 H 01/29/22 19:02: Urine Color Yellow, Urine Appearance Cloudy, Urine pH 6.0, Ur Specific [place] >= 1.030, Urine Protein 1+, Urine Glucose (UA) 2+, Urine Ketones Trace, Urine Blood 2+, Urine Nitrate Negative, Urine Bilirubin Negative, Urine Urobilinogen 0.2, Ur Leukocyte Esterase Negative, Urine RBC Occasional, Urine WBC Occasional, Ur Squamous Epith Cells None, Urine Bacteria 4+ 01/29/22 19:06: WBC 9.5, RBC 4.28, Hgb 12.0 L, Hct 37.8, MCV 88.2, MCH 28.0, MCHC 31.7 L, RDW 14.6, Plt Count 313, MPV 8.2, Neut % (Auto) 70.4, Lymph % (Auto) 23.9, [place] % (Auto) 4.6, Eos % (Auto) 0.6, Baso % (Auto) 0.5, Neut # (Auto) 6.7, Lymph # (Auto) 2.3, [place] # (Auto) 0.4, Eos # (Auto) 0.1, Baso # (Auto) 0.1 01/29/22 19:06: Sodium 135 L, Potassium 4.1, Chloride 101, Carbon Dioxide 26, Anion Gap 12.1, BUN 13, Creatinine 0.50 L, Estimated Creat Clear 40, Estimated GFR 120, Est GFR ( Amer) 145, Glucose 199 H, Calcium 9.3, Total Bilirubin 0.6, AST 31, ALT 46, Alkaline Phosphatase 104, Troponin I < 0.01, Total Protein 6.7, Albumin 3.7, Globulin 3.0, Albumin/Globulin Ratio 1.2 01/29/22 19:06: Procalcitonin 0.114 01/29/22 21:03: Troponin I < 0.01 01/29/22 21:26: Lactate 1.1 01/29/22 23:00: POC Glucose 262 H 01/29/22 23:59: Troponin I < 0.01 01/30/22 01:59: POC Glucose 312 H* 01/30/22 05:42: POC Glucose 251 H 01/30/22 06:59: WBC 8.8, RBC 4.08 L, Hgb 11.6 L, Hct 35.7 L, MCV 87.5, MCH 28.4, MCHC 32.4, RDW 14.5, Plt Count 337, MPV 8.6, Neut % (Auto) 79.1, Lymph % (Auto) 16.3, [place] % (Auto) 3.3, Eos % (Auto) 0.9, Baso % (Auto) 0.4, Neut # (Auto) 6.9, Lymph # (Auto) 1.4, [place] # (Auto) 0.3, Eos # (Auto) 0.1, Baso # (Auto) 0.0 01/30/22 06:59: Sodium 137, Potassium 4.4, Chloride 108 H, Carbon Dioxide 21 L, Anion Gap 12.4, BUN 20 H D, Creatinine 0.40 L, Estimated Creat Clear 48, Estimated GFR 155, Est GFR ( Amer) 187 D, Glucose 245 H D, Calcium 9.0, Magnesium 2.0 I & O for Last 24 hours: Intake & Output 01/27/22 01/28/22 01/29/22 01/30/22 23:59 23:59 23:59 23:59 Intake Total 625 / 625 Output Total 0 / 0 Balance 625 / 625 Weight 64.92 kg 64.92 kg Microbiology Reports for the Last 24 Hours: Microbiology 01/29/22 19:02 Urine,Catheterized Urine Culture - Preliminary Constitutional Constitutional: no acute distress, average body habitus, chronically ill appearing and cooperative *Routine HEENT Exam Head: Present other (Craniotomy site noted) Eye: Present EOMI and PERRL ENT: Present mucous membranes moist *Routine Neck Exam Neck: Present supple and trachea midline; Absent JVD or thyromegaly *Routine Respiratory Exam Respiratory: Present CTA bilaterally, normal respiratory effort and symmetric chest movement; Absent respiratory distress *Routine Cardiovascular Exam Cardiovascular: Present RRR; Absent murmur *Routine Abdominal Exam Abdominal: Present
[2022-01-30 16:00] VITALS: BP 126/73; PULSE 65; RESP 18; TEMP 36.9; O2SAT 95
[2022-01-30 17:18] LABS: POC Glucose,Bedside 364 (70-110)
--- NOTE | 2022-01-30 17:18 | PC.NURSE ---
[facility] called for an update. Stated still no beds available.
--- NOTE | 2022-01-30 19:02 | PC.NURSE ---
Pt has been alert to self. Speech is clear but delayed. Boarding Kennel Or Cattery Operator are equal. She's denied any complaints. She's ambulated to the bathroom with assist x1. Afebrile this shift. She's had a bath and full bed change. She has slept the majority of the shift but will awaken to voice. Daughter is at bedside and assisting with care. Bed is locked and in the lowest position, call light is within reach.
[2022-01-30 20:00] VITALS: BP 115/54; PULSE 95; RESP 18; TEMP 36.9; O2SAT 96
[2022-01-30 20:59] LABS: POC Glucose,Bedside 337 (70-110)
--- NOTE | 2022-01-30 22:40 | PC.NURSE ---
Updated [facility]. No beds at this time.
[2022-01-31 04:00] VITALS: BP 116/66; PULSE 76; RESP 18; TEMP 36.6; O2SAT 95
--- NOTE | 2022-01-31 04:52 | PC.NURSE ---
Updated [facility], no beds at this time.
[2022-01-31 05:00] VITALS: BMI 27.7
[2022-01-31 06:29] LABS: POC Glucose,Bedside 294 (70-110)
--- NOTE | 2022-01-31 06:39 | PC.NURSE ---
Pt has been alert to self, able to state name and birthday. Pt can answer yes/no questions quickly. Has been able to carry on conversation but has had delayed speech and some trouble finding words. Pt was restless t/o night and did not sleep. Family requested aide for sleep stating she was becoming very agitated, hospitalist notified. 5mg Melatonin administered. Helped with agitation but pt continued to stay awake through night. Daughter is at bedside. Call light within reach.
[2022-01-31 07:49] LABS: Basophils % 0.1 % (0.1-2.0); Eosinophils % 0.5 % (0.1-12.0); Hematocrit 31.5 % (37.0-47.0); Hemoglobin 10.5 g/dL (12.2-16.2); Lymphocytes # 1.3 K/mm3 (0.7-4.5); Lymphocytes % 14.3 % (10-50); Mean Corpuscular HGB Conc 33.4 g/dL (31.8-35.4); Mean Corpuscular Hemoglobin 28.3 pg (27.0-31.2); Mean Corpuscular Volume 84.7 fl (81-99); Mean Platelet Volume 9.1 fl (7.4-10.4); Monocytes # 0.3 K/mm3 (0.1-1.0); Monocytes % 3.8 % (1.7-9.3); Neutrophils # 7.2 K/mm3 (1.8-7.8); Neutrophils % 81.3 % (37.0-80.0); Platelet Count 369 K/mm3 (142-424); Red Blood Count 3.73 M/mm3 (4.20-5.40); Red Cell Distribution Width 14.8 % (11.5-17.5); White Blood Count 8.9 K/mm3 (4.8-10.8)
[2022-01-31 07:54] LABS: Chloride 108 mmol/L (98-107); Potassium 4.5 mmoL/L (3.5-5.1); Sodium 136 mmol/L (136-145)
[2022-01-31 07:57] LABS: Anion Gap 10.5 mEq/L (5-15); Blood Urea Nitrogen 23 mg/dl (7-17); Calcium 8.6 mg/dl (8.4-10.2); Carbon Dioxide 22 mmol/L (22.0-30.0); Creatinine Clearance Estimated 53 mL/min (50-200); Estimated Glomerular Filt Rate 120 ml/min (>60); GFR (African American) 145 ML/MIN (>60); Glucose 292 mg/dl (74-100)
[2022-01-31 08:00] VITALS: BP 145/78; PULSE 66; RESP 20; TEMP 36.4; O2SAT 97
[2022-01-31 08:03] LABS: C-Reactive Protein 53.6 mg/L (0-4)
--- NOTE | 2022-01-31 10:29 | EXP.DC.SUM ---
General Admission date:: 01/29/22 Discharge date: 01/31/22 HPI HPI HPI: This is a 76 yoF With past medical history of diabetes, hypertension, hyperlipidemia and recent resection of glioblastoma on January 02 presents emergency department for worsening altered mental status. Per daughter at bedside, patient underwent glioblastoma resection on 01/02/2022 at [facility] in [place]. She reports that she has been doing well since her surgery. At her baseline post resection, the patient has been able to complete many ADLs sometimes without difficulty. She does have aphasia but has been able to communicate with her daughter verbally. She has been ambulatory, able to take her self to the restroom and feed herself. Daughter states that she is also been able to follow commands. Yesterday afternoon patient developed worsening altered mental status. She is no longer following commands but is moving all extremities spontaneously. She will speak in some short sentences but of her own volition and not on command. Daughter at bedside does not endorse cough, foul-smelling urine, any sick contacts. The patient has been noted to grab at her craniotomy site which daughter believes is her stating that she has a headache. Emergency department work-up mostly unremarkable. Laboratory evaluation within normal limits. CT of the head with likely postoperative changes. There is noted fluid collection at the craniotomy site but is likely to represent postoperative changes. 3.8 mm shift that is reduced from her prior 6 mm shift. No acute changes noted. Emergency department physician did speak with Dr. Gallardo with neurosurgery and she is recommended for transfer, has been officially accepted by the hospitalist service at [facility] but given capacity barriers, patient will be admitted here until bed availability. On my exam, patient is resting with her eyes closed but will open eyes to voice. She is moving all 4 extremities volitionally but does not on command. She did speak in a full sentence stating your hands are cold without any noted dysphagia. On my exam patient was noted to be hot to touch. Temperature at that time 100.6. Noted erythema surrounding craniotomy surgical incisions. Will obtain blood cultures, procalcitonin, lactic acid and given recent instrumentation, will cover for [employer] bacteria with vancomycin and Rocephin. Hospitalist at [facility] has been updated on further findings and agrees with plan of care. Hospital Course Hospital Course Hospital Course: The patient was admitted to the medical surgical floor secondary to lack of capacity at accepting facility for transition of care and neurosurgery services. Blood and urine cultures were acquired. She was started on broad-spectrum antibiotic therapy including IV vancomycin and IV Rocephin. Her laboratory studies and inflammatory markers were trended. Her white blood cell count remained normal and stable. Her procalcitonin was negative. Her electrolytes and creatinine remained normal. Her hemoglobin A1c returned at 10.0%. Her calcium and magnesium were normal. An MRSA screen was requested. Her urine culture grew out gram-negative rods. Her blood cultures identified staph epidermidis in 1 bottle consistent with contamination and no growth to date in the second bottle. Her daughter and POA remained at the patient's bedside throughout the stay. Nursing staff and family identified improvement in the patient. She remained afebrile with stable vital signs and saturating appropriately on room air. She became more responsive and interactive. The daughter requested that they be discharged today to follow-up with [facility] on Wednesday for her evaluation for palliative radiation and chemotherapy. They plan to follow-up with their neurosurgeon as scheduled. She will be discharged on broad-spectrum cephalosporin for gram-negative UTI. I spent 35 minutes in [id number] time with the patient, daughter at
== END 2022-01-31 11:54 | disposition home or self-care (01) ==
LOC: ER 19:53 → 2ND 22:20
PROVIDERS: Nurse Practitioner Acute Care; Admitting Provider Family Medicine; Emergency Provider Emergency Medicine; PCP Family Medicine; Visit Provider Family Medicine
DX: G93.40 Encephalopathy, unspecified (principal); I10 Essential (primary) hypertension; E11.65 Type 2 diabetes mellitus with hyperglycemia; Z79.84 Long term (current) use of oral hypoglycemic drugs; C71.9 Malignant neoplasm of brain, unspecified; R47.01 Aphasia; Z20.822 Contact with and (suspected) exposure to COVID-19
CPT/HCPCS: G0378; 36415; 70450; 71045; 80048; 80053; 81001; 82962; 83036; 83605; 83735; 84145; 84484; 85025; 86140; 87040; 87077; 87086; 87088; 87186; 93005; 99285; C9803; J0696; J1953; J3370; U0003; U0005

== ENCOUNTER 2022-02-16 13:00 | Outpatient (RCR) | payer MEDICARE, OTHER, SELFPAY ==
--- NOTE | 2022-01-21 09:42 | HMH.SLAPHASI ---
Speech & Language Evaluation Speech/Language Aphasia Evaluation Start: 01/21/22 08:32 Freq: once Status: Complete Protocol: Document 01/20/22 16:00 DARCI (Rec: 01/21/22 09:41 DARCI [id number]) Aphasia Assessment/Goals/Plan Assessment Date of Evaluation: 01/20/22 Evaluation Type Initial Certification Assessment/Problems Pt was seen for a cognition evaluation at [facility] in the speech pathology department following brain surgery per MD order. Does Patient Qualify for Service Yes Qualify/Failure Comment Based on patient and family interview, clinical observation, and assessment results, Lori would benefit from skilled speech therapy services to address cognitive- linguistic deficits 2x/week. Plan Pt will be seen # times/week 2 for # weeks 12 Anticipate reaching STG in # weeks 8 Anticipate reaching LTG in # weeks 12 Pt/Guardian verbally ack understanding Yes of dx/prognosis/goals G -code Required No STG-Auditory Comprehension 2nd Element 70 STG-Verbal Expressive Language Word Naming 70 Naming Actions & Describing Objects 70 STG-Attending/Orientation/Memory Delayed Recall 70 Memory Recall 70 STG-Comparative/Linguistic Skills Categorization Ability 70 STG-Divergent Thinking Deductive Reasoning 70 Pharmacy Helper Goals Increase verbal expression skills to Yes: 70% communicate w/family & friends. Increase cognitive skills to communicate Yes: 70% w/family & friends Education Instructions provided Discussed assessment results/ potential goals with patient and her daughter who expressed understanding. 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 Prior to tumor removal, pt was having diffifculty understanding what was being said to her as well as well being able express her thoughts/ideas in an effective and efficient manner
== END 2022-02-16 13:05 | disposition home or self-care (01) ==
LOC: ST 13:00
PROVIDERS: PCP Family Medicine; Visit Provider Physical Medicine & Rehabilitation
DX: R47.89 Other speech disturbances (principal); Z48.811 Encounter for surgical aftercare following surgery on the nervous system
CPT/HCPCS: 92507; 92523; 97129; 97130

== ENCOUNTER 2022-02-17 14:00 | Outpatient (RCR) | payer MEDICARE, OTHER, SELFPAY | END 2022-02-17 14:05 | disposition home or self-care (01) | LOC: OT 14:00 | PROVIDERS: PCP Family Medicine; Visit Provider Physical Medicine & Rehabilitation | DX: R41.841 Cognitive communication deficit (principal); Z48.811 Encounter for surgical aftercare following surgery on the nervous system | CPT/HCPCS: 97110; 97164; 97165; 97530 ==

== ENCOUNTER 2022-03-27 16:00 | Outpatient (RCR) | payer MEDICARE, OTHER, SELFPAY | END 2022-03-27 16:05 | disposition home or self-care (01) | LOC: PT 16:00 | PROVIDERS: PCP Family Medicine; Visit Provider Physical Medicine & Rehabilitation | DX: R53.1 Weakness (principal); M54.50 Low back pain, unspecified; Z48.811 Encounter for surgical aftercare following surgery on the nervous system | CPT/HCPCS: 97110; 97112; 97163; 97164; 97530 ==

== ENCOUNTER 2022-05-07 13:40 | Observation (INO) | payer MEDICARE, OTHER, SELFPAY ==
[2022-05-07] VITALS (8 sets, daily range): BP systolic 126–179; BP diastolic 88–107; PULSE 104–122; RESP 17–18; TEMP 36.4–37; O2SAT 87–95; BMI 25.0
--- NOTE | 2022-05-07 13:54 | HMH.EDGENADL ---
Discharge Plan Disposition Patient Disposition: Admitted As Inpatient Prescriptions Prescriptions: No Action acetaminophen [Tylenol 8 Hour] 650 mg Tablet Extended Release 650 mg PO AM alprazolam [Xanax] 0.25 mg Tablet 0.25 mg PO BID diphenhydramine-acetaminophen [Tylenol PM Extra Strength] 25-500 mg Tablet 1 tab PO HS gabapentin [Neurontin] 100 mg Capsule 100 mg PO BID ondansetron 4 mg Tablet,Disintegrating 4 mg sublingual Q6HP PRN (Reason: Nausea) Qty: 30 0RF cefdinir 300 mg capsule 300 mg PO Q12H Qty: 20 0RF metformin 1,000 MG tablet 1,000 mg PO BIDWMEAL atorvastatin 10 MG tablet 10 mg PO HS lisinopril 20 MG tablet 20 mg PO DAILY Referrals Follow up/Referrals: Michelet Reddy MD [Primary Care Provider] - See instructions Clinical Impressions Clinical Impression: Glioblastoma multiforme, Vasogenic brain edema, Midline shift of brain, Encephalopathy acute Discharge ED Provider: Mickey Hernandez General Adult HPI General Chief complaint: Weakness Stated complaint: lethargic Time Seen by Provider: 05/07/22 13:54 History of Present Illness HPI narrative: Patient is a 76-year-old female with a history of stage IV glioblastoma multiform status post resection in December and 31 radiation treatments. Presents today with increasing lethargy over the past week. Family who takes good care of her at home and states that she normally is alert able to feed herself and that over the past few days is really been primarily lethargic and has decreased level of alertness. Has had multiple urinary tract infections in the past notes with her concerned about again today. No fevers at home no respiratory symptoms no focality to any of her symptoms other than just generalized weakness and lethargy. No vomiting or diarrhea. Related Data Home Medications Medication Instructions Recorded Confirmed atorvastatin 10 mg tablet 10 mg PO HS High cholesterol 01/01/20 01/29/22 lisinopril 20 mg tablet 20 mg PO DAILY Hypertension 01/01/20 01/29/22 metformin 1,000 mg tablet 1,000 mg PO BIDWMEAL Diabetes 01/01/20 01/30/22 acetaminophen 650 mg 650 mg PO AM Pain 01/29/22 01/29/22 tablet,extended release (Tylenol 8 Hour) alprazolam 0.25 mg tablet (Xanax) 0.25 mg PO BID Anxiety 12/08/22 12/08/22 diphenhydramine 25 1 tab PO HS sleep 01/29/22 01/29/22 mg-acetaminophen 500 mg tablet (Tylenol PM Extra Strength) gabapentin 100 mg capsule 100 mg PO BID Pain 01/29/22 01/29/22 (Neurontin) Previous Rx's Medication Instructions Recorded cefdinir 300 mg capsule 300 mg PO Q12H #20 caps 01/31/22 ondansetron 4 mg disintegrating 4 mg sublingual Q6HP PRN Nausea 01/31/22 tablet #30 tabs Allergies Allergy/AdvReac Type Severity Reaction Status Date / Time No Known Allergies Allergy Unverified 06/25/20 14:01 [facility] Disclaimer: The information contained in this section may have been updated after the patient was seen, as this information can be updated by other users. Medical History (Updated 05/07/22 @ 15:45 by Mickey Hernandez MD) Brain tumor HLD (hyperlipidemia) HTN (hypertension) Kidney disease Spinal stenosis Surgical History (Updated 01/30/22 @ 00:43 by Johanna Palomares RN) H/O cataract extraction H/O craniotomy H/O Spinal surgery H/O: hysterectomy History of cataract extraction with lens replacement Family History (Updated 01/30/22 @ 00:43 by Johanna Palomares RN) Other No significant family history Social History (Updated 01/30/22 @ 00:43 by Johanna Palomares RN) Smoking Status: Never smoker alcohol intake: never substance use type: denies use current occupational status: retired Travel in the last 8 weeks: None household members: spouse and children housing: house lives independently: No marital status: education level: college service: No current occupational exposures/hazards: No caffeine:
--- NOTE | 2022-05-07 14:01 | CT_ITS ---
PROCEDURE INFORMATION: Exam: CT Head Without Contrast Exam date and time: 05/07/2022 2:27 PM Age: 76 years old Clinical indication: Other: Fatigued; Prior surgery; Surgery date: <1 month; Surgery type: Removal of glioblastoma; Patient HX: Kristen. PT sleeps 14/09, recently finished radiation for glioblastoma. PT grabs front of head as if having a MENENDEZ. PT unable to speak; Additional info: Lethargic TECHNIQUE: Imaging protocol: Computed tomography of the head without contrast. Radiation optimization: All CT scans at this facility use at least one of these dose optimization techniques: automated exposure control; mA and/or kV adjustment per patient size (includes targeted exams where dose is matched to clinical indication); or iterative reconstruction. REPORTING DATA: Count of CT and Cardiac NM exams in prior 12 months: This patient has received 2 known CTs and 0 known cardiac nuclear medicine studies in the 12 months prior to the current study. COMPARISON: No relevant prior studies available. FINDINGS: Brain: Extensive tumefactive/vasogenic edema is re-identified essentially encompassing the left cerebral hemisphere. New hypodensity in the left thalamus is concerning for evolving infarct. Cerebral ventricles: Interval progression of locoregional mass effect partially effacing the left lateral ventricular body. There is a 13 mm [id number] midline shift, previously 8 mm by today's measurements. The right temporal horn measures 11 mm previously 4 mm, which is concerning for obstructive hydrocephalus. Pituitary gland and sella: There is medialization of the ankle structures partially effacing the suprasellar cistern and mass effect on the left cerebral peduncle. Paranasal sinuses: Visualized sinuses are unremarkable. No fluid levels. Mastoid air cells: Visualized mastoid air cells are well aerated. Bones/joints: There is redemonstration of postoperative changes related to left anterolateral craniotomy for tumor debulking. Expected postsurgical changes including 3 mm thick extra-axial collection/dural thickening deep to the craniotomy site and minimal amount of pneumocephalus noted. Soft tissues: Unremarkable. IMPRESSION: 1. New hypodensity in the left thalamus is concerning for evolving infarct. Further evaluation with brain MRI is recommended. 2. Interval progression of left hemisphere vasogenic/tumefactive edema. [id number] midline structure shift has progressed measuring 13 mm previously 8 mm. 3. Right lateral ventricle dilation concerning for developing obstructive hydrocephalus
--- NOTE | 2022-05-07 14:01 | XR_ITS ---
PROCEDURE INFORMATION: Exam: XR Chest Exam date and time: 05/07/2022 2:47 PM Age: 76 years old Clinical indication: Other: Fatigue/lethargic; Patient HX: PT has been sleeping 14/09 since completing radiation and undergoing SX to remove her glioblastoma. 0 chest complaints; Additional info: Weakness TECHNIQUE: Imaging protocol: Radiologic exam of the chest. Views: 1 view. COMPARISON: CR XR CHEST PORTABLE 01/29/2022 6:22 PM FINDINGS: Lungs: Lungs are hypoaerated. No evidence of pneumonia or interstitial edema. Pleural spaces: Unremarkable. No pleural effusion. No pneumothorax. Heart/Mediastinum: Unremarkable. No cardiomegaly. Bones/joints: Unremarkable. IMPRESSION: Lungs are hypoaerated. No evidence of pneumonia or interstitial edema.
[2022-05-07 14:07] LABS: Microscopic, Urine URINE MICROSCOPIC (MICROSCOPIC)
[2022-05-07 14:10] LABS: Chloride 107 mmol/L (98-107); Potassium 3.8 mmoL/L (3.5-5.1); Sodium 140 mmol/L (136-145)
[2022-05-07 14:11] LABS: Appearance,Urine CLEAR (Clear); Blood, Urine TRACE-I (Negative); Color,Urine YELLOW (Yellow); Glucose,Urine (UA) 2+ (Negative); Ketones,Urine TRACE (Negative); Leukocyte Esterase,Urine Negative (Negative); Nitrate,Urine Negative (Negative); PH,Urine 5.5 (5.0-8.5); Protein,Urine TRACE (Negative); Specific Gravity, Urine >= 1.030 (1.005-1.030)
[2022-05-07 14:13] LABS: Alanine Aminotransferase 29 U/L (12-78); Albumin Level 3.8 g/dl (3.5-5.0); Albumin/Globulin Ratio 1.2 (1.1-1.8); Alkaline Phosphatase 109 U/L (38-126); Anion Gap 12.8 mEq/L (5-15); Aspartate Amino Transferase 24 U/L (14-36); Basophils # 0.1 K/mm3 (0-0.2); Basophils % 0.5 % (0.1-2.0); Bilirubin,Total 0.5 mg/dl (0.2-1.3); Blood Urea Nitrogen 27 mg/dl (7-17); Calcium 9.3 mg/dl (8.4-10.2); Carbon Dioxide 24 mmol/L (22.0-30.0); Creatinine Clearance Estimated 51 mL/min (50-200); Eosinophils # 0.1 K/mm3 (0.0-0.4); Eosinophils % 0.6 % (0.1-12.0); Estimated Glomerular Filt Rate 120 ml/min (>60); GFR (African American) 145 ML/MIN (>60); Globulin 3.1 g/dL (1.3-3.2); Glucose 308 mg/dl (74-100); Hematocrit 42.1 % (37.0-47.0); Hemoglobin 13.4 g/dL (12.2-16.2); Lymphocytes # 1.6 K/mm3 (0.7-4.5); Lymphocytes % 9.6 % (10-50); Mean Corpuscular HGB Conc 31.9 g/dL (31.8-35.4); Mean Corpuscular Hemoglobin 28.1 pg (27.0-31.2); Mean Corpuscular Volume 88.1 fl (81-99); Mean Platelet Volume 8.4 fl (7.4-10.4); Monocytes # 0.8 K/mm3 (0.1-1.0); Monocytes % 4.5 % (1.7-9.3); Neutrophils # 14.3 K/mm3 (1.8-7.8); Neutrophils % 84.8 % (37.0-80.0); Platelet Count 466 K/mm3 (142-424); Red Blood Count 4.78 M/mm3 (4.20-5.40); Red Cell Distribution Width 15.7 % (11.5-17.5); Total Protein,Serum 6.9 g/dl (6.3-8.2); White Blood Count 16.9 K/mm3 (4.8-10.8)
[2022-05-07 14:15] LABS: Bilirubin,Urine Negative (Negative)
[2022-05-07 14:17] LABS: MANUAL DIFFERENTIAL MANUAL DIFFERENTIAL (MANUAL DIFF)
[2022-05-07 14:42] LABS: Bacteria,Urine 2+ /lpf; Squamous Epithelial Cell,Urine Occasional #/hpf (0-5); Yeast,Urine 2+ /lpf
[2022-05-07 14:43] LABS: Uric Acid Crystals,Urine 1+ /lpf
--- NOTE | 2022-05-07 14:50 | CT_ITS ---
PROCEDURE INFORMATION: Exam: CT Abdomen And Pelvis With Contrast Exam date and time: 05/07/2022 3:05 PM Age: 76 years old Clinical indication: Abdominal pain; Epigastric; Additional info: Mid epigastric abd pain, refractory TECHNIQUE: Imaging protocol: Computed tomography of the abdomen and pelvis with contrast. Radiation optimization: All CT scans at this facility use at least one of these dose optimization techniques: automated exposure control; mA and/or kV adjustment per patient size (includes targeted exams where dose is matched to clinical indication); or iterative reconstruction. Contrast material: ISOVUE; Contrast volume: 75 ml; Contrast route: IV; REPORTING DATA: Count of CT and Cardiac NM exams in prior 12 months: This patient has received 3 known CTs and 0 known cardiac nuclear medicine studies in the 12 months prior to the current study. COMPARISON: CR COCCYX2 COCCYX 2 VIEW 03/17/2016 12:10 PM FINDINGS: Liver: A focus of hypoattenuation within the right hepatic lobe adjacent to the gallbladder fossa likely represents focal fatty infiltration and/or perfusional changes. No focal hepatic lesions. Gallbladder and bile ducts: Gallbladder is distended without radiopaque cholelithiasis. No biliary ductal dilation. Pancreas: No peripancreatic fluid stranding. No main pancreatic ductal dilation. Subcentimeter hypodensity in the distal pancreatic body statistically represent side-branch IPMN Spleen: No splenomegaly. Adrenal glands: The adrenal glands are normal. Kidneys and ureters: Scattered subcentimeter hypodensities in both kidneys are too small to accurately characterize. Nephrograms are symmetric. No nephrolithiasis or hydroureteronephrosis on either side. No solid lesions Stomach and bowel: No bowel wall thickening or distention. Appendix: A normal appendix is not well visualized. However, no evidence of inflammatory changes in the right lower quadrant to suggest acute appendicitis. Intraperitoneal space: There is no evidence of free intraperitoneal or pelvic fluid. Vasculature: Hyperattenuating material in the coronary tree likely a combination of vascular stents and atherosclerosis. The aorta demonstrates severe atherosclerotic calcification. There is dbuhbopq-nz-vufwvk narrowing of the origin of renal arteries bilaterally. Lymph nodes: No evidence of retroperitoneal or mesenteric lymphadenopathy. Urinary bladder: Urinary bladder is unremarkable. Reproductive: Unremarkable as visualized. Bones/joints: No acute osseous abnormality. Multilevel degenerative changes of the included spine. Soft tissues: Unremarkable. IMPRESSION: Severe aortoiliac atherosclerotic changes. Owftwily-de-tzwlzf narrowing of the origin of renal arteries bilaterally. COMMENTS: Consistent with the [employer]'s Incidental Findings Committee white paper (J Am Gerson Radiol 2018): Any incidental renal lesion less than 1 cm or classified as too small to characterize, or any incidental cystic renal lesion characterized as simple-appearing, is likely benign. No follow-up imaging is recommended for these lesions per consensus recommendations based on imaging criteria.
[2022-05-07 15:26] LABS: Lymphocytes % 8 % (10-50); Monocytes % 6 % (2-9); Neutrophils % 86 % (42-76); Platelet Estimate Slight Increase; RBC Morphology Normal; Total Cells Counted 100
--- NOTE | 2022-05-07 15:50 | PC.NURSE ---
DR SAENZ WENT IN AND WAS TALKING WITH FAMILY ABOUT ADMISSION , FAMILY WOULD LIKE ADMISSION AND THEN TO GO HOME WITH HOSPICE . [facility] CALLED FOR BED . DR RAMOS HAS AGREED TO ADMIT PT
[2022-05-07 15:53] LABS: Coronavirus 19, PCR Not Detected (NotDetected); Influenza A, PCR Not Detected (NotDetected); Influenza B, PCR Not Detected (NotDetected)
--- NOTE | 2022-05-07 16:49 | PC.NURSE ---
report called to Sophie Iniguez RN
--- NOTE | 2022-05-07 16:59 | PC.NURSE ---
Pt arrived to the floor at this time
--- NOTE | 2022-05-07 17:00 | PC.NURSE ---
PT BEING TRANSPORTED UP TO ACUTE CARE
--- NOTE | 2022-05-07 18:01 | EXP.HP ---
History of Present Illness *Admission Date: 05/07/22 *Reason for visit:: Chief complaint: Altered mental status *History of present illness: This is a 76-year-old female who presents to [facility] emergency department accompanied by her Tony and daughter Radha. They are concerned with her altered mental status over the last few days. Her past medical history significant for stage IV glioblastoma multiforme status postresection in December with 31 radiation treatments. She is unresponsive and the history is acquired from the and the daughter. They understand that her prognosis is poor but are hoping to get some help with her headaches and obtunded status. They are requesting that her CODE STATUS be updated to comfort care. They are interested in hospice care. Case management consultation has been placed. [facility] Disclaimer: The information contained in this section may have been updated after the patient was seen, as this information can be updated by other users. Medical History (Updated 05/07/22 @ 18:12 by Ananth Caballero MD) Brain tumor Glioblastoma multiforme HLD (hyperlipidemia) HTN (hypertension) Kidney disease Spinal stenosis Surgical History H/O cataract extraction H/O craniotomy H/O Spinal surgery H/O: hysterectomy History of cataract extraction with lens replacement Family History Other No significant family history Social History (Updated 05/07/22 @ 17:19 by Sophie Iniguez RN) Smoking Status: Never smoker alcohol intake: never substance use type: denies use current occupational status: retired Travel in the last 8 weeks: None household members: spouse and children housing: house lives independently: No marital status: education level: college service: No current occupational exposures/hazards: No caffeine: No Review of Systems Review of Systems Review of systems:: unable to obtain Meds Home Medications and Allergies Home Medications Medication Instructions Recorded Confirmed Type atorvastatin 10 mg tablet 10 mg PO HS High cholesterol 01/01/20 01/29/22 History lisinopril 20 mg tablet 20 mg PO DAILY Hypertension 01/01/20 01/29/22 History metformin 1,000 mg tablet 1,000 mg PO BIDWMEAL Diabetes 01/01/20 01/30/22 History acetaminophen 650 mg 650 mg PO AM Pain 01/29/22 01/29/22 History tablet,extended release (Tylenol 8 Hour) alprazolam 0.25 mg tablet (Xanax) 0.25 mg PO BID Anxiety 01/29/22 01/29/22 History diphenhydramine 25 1 tab PO HS sleep 01/29/22 01/29/22 History mg-acetaminophen 500 mg tablet (Tylenol PM Extra Strength) gabapentin 100 mg capsule 100 mg PO BID Pain 01/29/22 01/29/22 History (Neurontin) cefdinir 300 mg capsule 300 mg PO Q12H #20 caps 01/31/22 Rx ondansetron 4 mg disintegrating 4 mg sublingual Q6HP PRN Nausea 01/31/22 Rx tablet #30 tabs New Prescriptions to Start Prescriptions: Allergies Allergy/AdvReac Type Severity Reaction Status Date / Time No Known Allergies Allergy Unverified 06/25/20 14:01 Exam Data for Last 24 hours Vital signs and Labs for Last 24 Hours: Temp Pulse Resp BP Pulse Ox 98.6 F 106 H 17 132/92 H 90 L 05/07/22 16:51 05/07/22 16:51 05/07/22 16:51 05/07/22 16:51 05/07/22 16:30 Laboratory Results - last 24 hr 05/07/22 13:41: Urine Color Yellow, Urine Appearance Clear, Urine pH 5.5, Ur Specific [place] >= 1.030, Urine Protein Trace, Urine Glucose (UA) 2+, Urine Ketones Trace, Urine Blood Trace-i, Urine Nitrate Negative, Urine Bilirubin Negative, Urine Urobilinogen 1.0, Ur Leukocyte Esterase Negative, Urine RBC 5-10, Urine WBC 3-5, Ur Squamous Epith Cells Occasional, Uric Acid Crystals 1+, Urine Bacteria 2+, Urine Yeast 2+ 05/07/22 13:41: WBC 16.9 H, RBC 4.78, Hgb 13.4, Hct 42.1, MCV 88.1, MCH 28.1, MCHC 31.9, RDW 15.7, Plt Cou
[2022-05-08 04:00] VITALS: BP 142/82; PULSE 116; RESP 18; TEMP 37.1; O2SAT 89; BMI 23.0
--- NOTE | 2022-05-08 05:08 | PC.NURSE ---
PATIENT SEDATED. RECEIVED DILAUDIID 2 MG IVP OVER 5 MINS AT 0155. RESPS GOT LOW 6/MIN. RESP.S UP TO 18/MIN NOW. PATIENT IS A DNR/HOSPICE PATIENT. COMFORT MEASURES. 02 AT 2LNC. SHIRA IN USE.
--- NOTE | 2022-05-08 06:54 | HMH.PHAINT1 ---
Pharmacy Intervention Comments: MEDICATION RECONCILIATION COMPLETED ON PATIENT USING EXTERNAL FILL HISTORY FROM PHARMACY AND CARLOS REPORT. -SURINDER CHADWICK, ROBID
--- NOTE | 2022-05-08 07:49 | SW/DCPLANNER ---
Addendum entered by Margo Rust 05/08/22 12:39: Patient will discharge home with Hospice services today. Addendum entered by Margo Rust 05/08/22 10:36: Janet oglesby/ [facility] is here to evaluate patient. Patient's and daughter are at bedside. Original Note: Per family request and MD orders patient information has been faxed to [facility]. I will follow up with Janet oglesby/ [facility] once information is reviewed.
[2022-05-08 07:52] VITALS: BP 121/67; PULSE 110; RESP 20; TEMP 36.4; O2SAT 94
--- NOTE | 2022-05-08 09:38 | EXP.DC.SUM ---
General Admission date:: 05/07/22 Discharge date: 05/08/22 HPI HPI HPI: This is a 76-year-old female who presents to [facility] emergency department accompanied by her Tony and daughter Radha. They are concerned with her altered mental status over the last few days. Her past medical history significant for stage IV glioblastoma multiforme status postresection in December with 31 radiation treatments. She is unresponsive and the history is acquired from the and the daughter. They understand that her prognosis is poor but are hoping to get some help with her headaches and obtunded status. They are requesting that her CODE STATUS be updated to comfort care. They are interested in hospice care. Case management consultation has been placed. Hospital Course Hospital Course Hospital Course: The patient was admitted to the medical unit with daughter Judy and Tony remaining at bedside. A goals of care conversation occurred and they have elected to make the patient comfort care and are interested in being discharged today with hospice. Case management has contacted hospice for discharge home with their services. Exam Data for Last 24 hours Vital signs and Labs for Last 24 Hours: Temp Pulse Resp BP Pulse Ox 97.5 F L 110 H 20 121/67 94 L 05/08/22 07:52 05/08/22 07:52 05/08/22 07:52 05/08/22 07:52 05/08/22 07:52 Laboratory Results - last 24 hr 05/07/22 13:41: Urine Color Yellow, Urine Appearance Clear, Urine pH 5.5, Ur Specific [place] >= 1.030, Urine Protein Trace, Urine Glucose (UA) 2+, Urine Ketones Trace, Urine Blood Trace-i, Urine Nitrate Negative, Urine Bilirubin Negative, Urine Urobilinogen 1.0, Ur Leukocyte Esterase Negative, Urine RBC 5-10, Urine WBC 3-5, Ur Squamous Epith Cells Occasional, Uric Acid Crystals 1+, Urine Bacteria 2+, Urine Yeast 2+ 05/07/22 13:41: WBC 16.9 H, RBC 4.78, Hgb 13.4, Hct 42.1, MCV 88.1, MCH 28.1, MCHC 31.9, RDW 15.7, Plt Count 466 H, MPV 8.4, Neut % (Auto) 84.8 H, Lymph % (Auto) 9.6 L, Scurry % (Auto) 4.5, Eos % (Auto) 0.6, Baso % (Auto) 0.5, Neut # (Auto) 14.3 H, Lymph # (Auto) 1.6, Scurry # (Auto) 0.8, Eos # (Auto) 0.1, Baso # (Auto) 0.1, Total Counted 100, Neutrophils % (Manual) 86 H, Lymphocytes % (Manual) 8 L, Monocytes % (Manual) 6, Platelet Estimate Slight increase, RBC Morphology Normal 05/07/22 13:41: Sodium 140, Potassium 3.8, Chloride 107, Carbon Dioxide 24, Anion Gap 12.8, BUN 27 H, Creatinine 0.50 L, Estimated Creat Clear 51, Estimated GFR 120, Est GFR ( Amer) 145, Glucose 308 H, Calcium 9.3, Total Bilirubin 0.5, AST 24, ALT 29, Alkaline Phosphatase 109, Total Protein 6.9, Albumin 3.8, Globulin 3.1, Albumin/Globulin Ratio 1.2 05/07/22 15:45: SARS-CoV-2 (PCR) Not detected, Influenza A Untype (PCR) Not detected, Influenza Type B (PCR) Not detected I & O for Last 24 hours: Intake & Output 05/05/22 05/06/22 05/07/22 05/08/22 23:59 23:59 23:59 23:59 Output Total 50 / 50 Balance -50 / -50 - Weight 68.039 kg 62.596 kg Constitutional Constitutional: no acute distress, average body habitus, chronically ill appearing, cooperative and obtunded *Routine HEENT Exam Head: Present other (Craniotomy site noted) Eye: Present other ENT: Present mucous membranes dry *Routine Neck Exam Neck: Present supple and trachea midline; Absent JVD or thyromegaly *Routine Respiratory Exam Respiratory: Present CTA bilaterally, normal respiratory effort and symmetric chest movement; Absent respiratory distress *Routine Cardiovascular Exam Cardiovascular: Present RRR; Absent murmur *Routine Abdominal Exam Abdominal: Present soft and normoactive bowel sounds; Absent tenderness *Routine Extremities Exam Extremities: Absent cyanosis, clubbing or edema *Routine Skin Exam Skin: Present warm; Absent erythema or rash *Routine Neurological Exam Neurological: Present altered mental status Routine Psychiatric Exam Psychiatric: Present unable to assess
--- NOTE | 2022-05-08 13:10 | PC.NURSE ---
Pt left floor with ambulance staff to go home with hospice @ 2169
== END 2022-05-08 13:10 | disposition hospice, home (50) ==
LOC: ER 15:45 → 2ND 16:07
PROVIDERS: Admitting Provider Family Medicine; Emergency Provider Student in an Organized Health Care Education/Training Program; PCP Family Medicine; Visit Provider Family Medicine
DX: C71.2 Malignant neoplasm of temporal lobe (principal); G93.6 Cerebral edema; G93.40 Encephalopathy, unspecified; I10 Essential (primary) hypertension; E78.5 Hyperlipidemia, unspecified; Z79.899 Other long term (current) drug therapy; Z66 Do not resuscitate; Z20.822 Contact with and (suspected) exposure to COVID-19
CPT/HCPCS: G0378; 70450; 71045; 74177; 80053; 81001; 85007; 85025; 87086; 99285; C9803; Q9967; U0003; U0005